=== PATIENT | female | born 1990 | race Caucasian/White ===

== ENCOUNTER 2016-07-21 21:48 | Emergency (ER) | payer OTHER ==
--- NOTE | 2016-07-21 23:07 | DIAGNOSTIC IMAGING REPORT ---
PROCEDURE: CT ABDOMEN/PELVIS W/O CONTRAST INDICATION: Right flank pain TECHNIQUE: Noncontrast axial images were obtained of the entire abdomen and pelvis with sagittal and coronal reformations. COMPARISON: None. FINDINGS: ABDOMEN: 1.4 mm right UVJ calculus with moderate right hydroureteronephrosis. There are no additional urinary calculi. Lung base are clear. Heart size is normal. Liver, gallbladder, pancreas, spleen, adrenal glands and abdominal aorta are normal. PELVIS: Normal appendix. IUD in place. No pelvic mass, free fluid or inflammatory changes. Bones are unremarkable. IMPRESSION: 1. 1.4 mm right UVJ calculus with moderate right hydroureteronephrosis. 2. IUD in place 3. Results discussed with Dr. Schmidt All CT scans at this facility use dose modulation, iterative reconstruction, and/or weight-based dosing when appropriate to reduce radiation dose to as low as reasonably achievable.
--- NOTE | 2016-07-21 23:10 | ED NURSING NOTES ---
Clinical Report - Nurses [facility] [address] [place] [address] 07/21/2016 21:49 Patient: VIGNESH KING TRIAGE Triage time 21:55. Acuity: LEVEL 3. Chief Complaint: RIGHT-SIDED FLANK PAIN and DIFFICULTY VOIDING (Vomiting). 22:10. Alert. SEPSIS SCREEN: Sepsis Screen. Negative (no infection suspected/documented). --22:10 Zi Batres R.N. 21:54 07/21/16. BP: 140/89. HR: 70. RR: 18. O2 saturation: 100% on room air. Temp: 98.3 F (oral). Pain level now: 12/07. --22:10 Zi Batres R.N. Weight: 86.1 kg stated. Height/Length: 68 inches Per Patient. BMI: 28.9. --22:00 Zi Batres R.N. Medications None. --22:00 Zi Batres R.N. History Arrived by private vehicle. Historian: patient. Accompanied by family. Primary physician (None). This started today. Treatment SIEBEL ADMINISTRATOR: None. PAST MEDICAL HX: Immunizations: up-to-date. Last normal menstrual period- 3 days ago. SOCIAL HX: Never smoker. Occasional alcohol use. No drug use. No infectious disease exposure. ABUSE ASSESSMENT: No report of abuse. FALL RISK ASSESSMENT: Fall risk assessment completed. No fall risk identified. NUTRITIONAL RISK ASSESSMENT: The nutritional risk assessment revealed no deficiencies. FUNCTIONAL ASSESSMENT: Functional assessment: no impairments noted. LEARNING NEEDS ASSESSMENT: The learning needs assessment revealed no barriers. SKIN INTEGRITY ASSESSMENT: Skin integrity risk assessment completed. No skin integrity risk identified. --22:10 Zi Batres R.N. PROBLEMS: Corneal Abrasion. --22:01 Zi Batres R.N. ADDITIONAL SURGERIES: . --22:01 Zi Batres R.N. Interventions ID band on patient. To treatment room. --22:10 Zi Batres R.N. PHYSICAL ASSESSMENT 21:56. Ambulatory to room. Patient gowned. GENERAL / NEURO / PSYCH: Alert. Oriented X 4. Appears in pain. HEENT: Mucous membranes are pink. RESPIRATORY: Respirations not labored. SKIN: Skin is warm and dry. --22:11 Zi Batres R.N. NURSING PROGRESS NOTES 21:58. Patient ID band checked for patient name and birthdate: patient confirmed. Clean catch urine collected with return of yellow-colored clear urine; sample sent to lab for urinalysis and HCG. Specimen labeled in the presence of the patient. --22:11 Zi Batres R.N. 22:10. Head of bed elevated. Two patient identifiers checked. Call light placed in reach. Bed placed in lowest position. Brakes of bed on. Patient ready for evaluation- chart flagged. --22:10 Zi Batres R.N. 21:59 07/21/2016 Site #1 started via IV in the right antecubital space with an 20g angiocath, with aseptic technique and good blood return; one attempt. Blood drawn: rainbow set. Labeled in the presence of the patient and sent to the lab. Saline lock flushed with 10 mL saline. --22:14 Zi Batres R.N. 22:03 07/21/2016 Started bag #1 1000 mL IV Fluids IV NS (Saline); at 1000 mL/hr over 1 hour(s) via site #1 --22:14 Zi Batres R.N. 22:05 07/21/2016 Zofran (Ondansetron HCl) IVP 4 mg given over 2 minute(s) via site #1. Allergies verified and confirmed 5 rights. IV patency established. IV site checked: no pain, redness, or swelling. IV flushed thoroughly pre- and post-medication administration. --22:14 Zi Batres R.N. 22:00 Patient vomited - new emesis bag, tissues and wet washrag provided. --22:15 Zi Batres R.N. 22:24. Pulse oximeter placed on patient; monitor alarms on. --22:24 Zi Batres R.N. 22:20 07/21/2016 Dilaudid (HYDROmorphone HCl PF) IVP 0.5 mg given over 2 minute(s) via site #1. Allergies verified, confirmed 5 rights and sedative warning given to the patient. IV patency established. IV site checked: no pain, redness, or swelling. IV flushed thoroughly pre- and post-medication administration. --22:24 Zi Batres R.N. 22:27 07/21/2016 Toradol IVP 30 mg given over 2 minute(s) via site #1. Allergies verified and confirmed 5 rights. IV patency established. IV site checked: no pain, redness, or swelling. IV flushed thoroughly pre- and post-medication administration. --22:29 Zi Batres R.N. 22:50. Patient transported to OR by stretcher with tech. --22:50 Zi Batres R.N. 23:00. Patient returned from OR by stretcher with tech. --23:03 Zi Batres R.N. 23:25. The patient is calm and resting quietly. Overall patient status is improved- she states feels better. SKIN: Skin is warm and dry. Skin color within normal limits. --23:36 Zi Batres R.N. DISPOSITION / DISCHARGE 23:15 07/21/2016 Flomax (Tamsulosin HCl) PO 0.4 mg given. Allergies verified and confirmed 5 rights. --23:17 Zi Batres R.N. 23:18 07/21/2016 Site #1 removed upon discharge. Catheter intact. Bandage applied. --23:18 Zi Batres R.N. 23:18 07/21/2016 IV Fluids IV NS Discontinued: bag #1 STOPPED upon discharge. Total amount infused: 825 mL. IV patency established. IV site checked: no pain, redness, or swelling. IV flushed thoroughly. --23:18 Zi Batres R.N. Departure time: 23:26. Condition at departure: stable. No learning barriers present. Discharge instructions provided and reviewed with the patient. Reviewed medication(s) side effects, precautions, dosing and course information. Prescription(s) given to the patient. Patient verbalized understanding. Written instructions provided in Polish. The patient was discharged home and accompanied by family. She left the Emergency Department ambulatory and via private vehicle. Family member driving. FALL RISK ASSESSMENT: Fall risk assessment completed. No fall risk identified. --23:27 Zi Batres R.N. 23:16 07/21/16. BP: 126/86. HR: 66. RR: 15. O2 saturation: 100%. Pain level now: 10/07. --23:27 Zi Batres R.N. 23:20. ( Urine strainer and instructions for use given to pt). --23:37 Zi Batres R.N. Locked/Released at 07/22/2016 0:19 by Zi Batres R.N.
--- NOTE | 2016-07-21 23:10 | ED NURSING NOTES ---
Clinical Report - Nurses [facility] [address] [place] [address] 07/21/2016 21:49 Patient: VIGNESH KING TRIAGE Triage time 21:55. Acuity: LEVEL 3. Chief Complaint: RIGHT-SIDED FLANK PAIN and DIFFICULTY VOIDING (Vomiting). 22:10. Alert. SEPSIS SCREEN: Sepsis Screen. Negative (no infection suspected/documented). --22:10 Zi Batres R.N. 21:54 07/21/16. BP: 140/89. HR: 70. RR: 18. O2 saturation: 100% on room air. Temp: 98.3 F (oral). Pain level now: 12/07. --22:10 Zi Batres R.N. Weight: 86.1 kg stated. Height/Length: 68 inches Per Patient. BMI: 28.9. --22:00 Zi Batres R.N. Medications None. --22:00 Zi Batres R.N. History Arrived by private vehicle. Historian: patient. Accompanied by family. Primary physician (None). This started today. Treatment PROGRAM PLANNER: None. PAST MEDICAL HX: Immunizations: up-to-date. Last normal menstrual period- 3 days ago. SOCIAL HX: Never smoker. Occasional alcohol use. No drug use. No infectious disease exposure. ABUSE ASSESSMENT: No report of abuse. FALL RISK ASSESSMENT: Fall risk assessment completed. No fall risk identified. NUTRITIONAL RISK ASSESSMENT: The nutritional risk assessment revealed no deficiencies. FUNCTIONAL ASSESSMENT: Functional assessment: no impairments noted. LEARNING NEEDS ASSESSMENT: The learning needs assessment revealed no barriers. SKIN INTEGRITY ASSESSMENT: Skin integrity risk assessment completed. No skin integrity risk identified. --22:10 Zi Batres R.N. PROBLEMS: Corneal Abrasion. --22:01 Zi Batres R.N. ADDITIONAL SURGERIES: . --22:01 Zi Batres R.N. Interventions ID band on patient. To treatment room. --22:10 Zi Batres R.N. PHYSICAL ASSESSMENT 21:56. Ambulatory to room. Patient gowned. GENERAL / NEURO / PSYCH: Alert. Oriented X 4. Appears in pain. HEENT: Mucous membranes are pink. RESPIRATORY: Respirations not labored. SKIN: Skin is warm and dry. --22:11 Zi Batres R.N. NURSING PROGRESS NOTES 21:58. Patient ID band checked for patient name and birthdate: patient confirmed. Clean catch urine collected with return of yellow-colored clear urine; sample sent to lab for urinalysis and HCG. Specimen labeled in the presence of the patient. --22:11 Zi Batres R.N. 22:10. Head of bed elevated. Two patient identifiers checked. Call light placed in reach. Bed placed in lowest position. Brakes of bed on. Patient ready for evaluation- chart flagged. --22:10 Zi Batres R.N. 21:59 07/21/2016 Site #1 started via IV in the right antecubital space with an 20g angiocath, with aseptic technique and good blood return; one attempt. Blood drawn: rainbow set. Labeled in the presence of the patient and sent to the lab. Saline lock flushed with 10 mL saline. --22:14 Zi Batres R.N. 22:03 07/21/2016 Started bag #1 1000 mL IV Fluids IV NS (Saline); at 1000 mL/hr over 1 hour(s) via site #1 --22:14 Zi Batres R.N. 22:05 07/21/2016 Zofran (Ondansetron HCl) IVP 4 mg given over 2 minute(s) via site #1. Allergies verified and confirmed 5 rights. IV patency established. IV site checked: no pain, redness, or swelling. IV flushed thoroughly pre- and post-medication administration. --22:14 Zi Batres R.N. 22:00 Patient vomited - new emesis bag, tissues and wet washrag provided. --22:15 Zi Batres R.N. 22:24. Pulse oximeter placed on patient; monitor alarms on. --22:24 Zi Batres R.N. 22:20 07/21/2016 Dilaudid (HYDROmorphone HCl PF) IVP 0.5 mg given over 2 minute(s) via site #1. Allergies verified, confirmed 5 rights and sedative warning given to the patient. IV patency established. IV site checked: no pain, redness, or swelling. IV flushed thoroughly pre- and post-medication administration. --22:24 Zi Batres R.N. 22:27 07/21/2016 Toradol IVP 30 mg given over 2 minute(s) via site #1. Allergies verified and confirmed 5 rights. IV patency established. IV site checked: no pain, redness, or swelling. IV flushed thoroughly pre- and post-medication administration. --22:29 Zi Batres R.N. 22:50. Patient transported to MD by stretcher with tech. --22:50 Zi Batres R.N. 23:00. Patient returned from MD by stretcher with tech. --23:03 Zi Batres R.N. 23:25. The patient is calm and resting quietly. Overall patient status is improved- she states feels better. SKIN: Skin is warm and dry. Skin color within normal limits. --23:36 Zi Batres R.N. DISPOSITION / DISCHARGE 23:15 07/21/2016 Flomax (Tamsulosin HCl) PO 0.4 mg given. Allergies verified and confirmed 5 rights. --23:17 Zi Batres R.N. 23:18 07/21/2016 Site #1 removed upon discharge. Catheter intact. Bandage applied. --23:18 Zi Batres R.N. 23:18 07/21/2016 IV Fluids IV NS Discontinued: bag #1 STOPPED upon discharge. Total amount infused: 825 mL. IV patency established. IV site checked: no pain, redness, or swelling. IV flushed thoroughly. --23:18 Zi Batres R.N. Departure time: 23:26. Condition at departure: stable. No learning barriers present. Discharge instructions provided and reviewed with the patient. Reviewed medication(s) side effects, precautions, dosing and course information. Prescription(s) given to the patient. Patient verbalized understanding. Written instructions provided in Greek. The patient was discharged home and accompanied by family. She left the Emergency Department ambulatory and via private vehicle. Family member driving. FALL RISK ASSESSMENT: Fall risk assessment completed. No fall risk identified. --23:27 Zi Batres R.N. 23:16 07/21/16. BP: 126/86. HR: 66. RR: 15. O2 saturation: 100%. Pain level now: 10/07. --23:27 Zi Batres R.N. 23:20. ( Urine strainer and instructions for use given to pt). --23:37 Zi Batres R.N. Locked/Released at 07/22/2016 0:19 by Zi Batres R.N.
--- NOTE | 2016-07-21 23:10 | ED ORDER SUMMARY ---
..... Patient: VIGNESH KING OrderSheet [facility] VisitID: [id number] [address] [place] [address] 26y, F Registration Date/Time: 07/21/2016 ORDER SHEET Weight: 86.1 kg (stated) Allergies: Penicillin, Latex GENERAL ORDERS: UA-Culture if indicated Urgent (21:58 07/21/2016 Gisselle SOLIS) (Ack 22:00 Valeria) (22:14 JQuivey R.N.) Urine Urgent (21:58 07/21/2016 Gisselle SOLIS) (Ack 22:00 Valeria) (22:14 JQuivey R.N.) Bladder Scan (21:58 07/21/2016 Gisselle SOLIS) (Cancelled: Other22:25 JQuivey R.N.) CBC w Diff Urgent (22:13 07/21/2016 JQuivey R.N. per protocol) (Ack 22:14 Valeria) (22:23 JQuivey R.N.) CMP Urgent (22:13 07/21/2016 JQuivey R.N. per protocol) (Ack 22:14 Valeria) (22:23 JQuivey R.N.) Amylase Urgent (22:19 07/21/2016 Gisselle SOLIS) (Ack 22:23 Valeria) (22:25 JQuivey R.N.) Lipase Urgent (22:19 07/21/2016 Gisselle SOLIS) (Ack 22:23 Valeria) (22:25 JQuivey R.N.) CT Abd/Pel wo Cont Urgent (22:41 07/21/2016 Gisselle SOLIS) (Ack 22:43 Valeria) (23:01 [facility]) MEDICATION ORDERS: Flomax PO 0.4 mg (NOW) (23:08 07/21/2016 Gisselle SOLIS) (Ack 23:11 JQuivey R.N.) (23:17 JQuivey R.N.) IV FLUIDS: IV NS : initial bolus none -, then 1000 mL/hr (NOW) (22:12 07/21/2016 JQuivey R.N. per protocol) (22:14 JQuivey R.N.) Zofran IV 4 mg (NOW) (22:13 07/21/2016 JQuivey R.N. per protocol) (22:14 JQuivey R.N.) Dilaudid IV 0.5 mg (HIGH ALERT MEDICATION, NOW) (22:19 07/21/2016 Gisselle SOLIS) (22:24 JQuivey R.N.) Toradol IV 30 mg (NOW) (22:28 07/21/2016 JQuivey R.N. verbal order read back to Gisselle SOLIS) (22:29 JQuivey R.N.) ORDER SHEET NOTES: [Electronically signed by Zi Batres R.N. (00:19 07/22/2016)] [Electronically signed by Wily Schmidt MD (00:33 07/22/2016)] [Electronically locked/signed by Zi Batres R.N. (00:19 07/22/2016)]
--- NOTE | 2016-07-21 23:10 | ED ORDER SUMMARY ---
..... Patient: VIGNESH KING OrderSheet [facility] VisitID: [id number] [address] [place] [address] 26y, F Registration Date/Time: 07/21/2016 ORDER SHEET Weight: 86.1 kg (stated) Allergies: Penicillin, Latex GENERAL ORDERS: UA-Culture if indicated Urgent (21:58 07/21/2016 Gisselle SOLIS) (Ack 22:00 Valeria) (22:14 JQuivey R.N.) Urine Urgent (21:58 07/21/2016 Gisselle SOLIS) (Ack 22:00 Valeria) (22:14 JQuivey R.N.) Bladder Scan (21:58 07/21/2016 Gisselle SOLIS) (Cancelled: Other22:25 JQuivey R.N.) CBC w Diff Urgent (22:13 07/21/2016 JQuivey R.N. per protocol) (Ack 22:14 Valeria) (22:23 JQuivey R.N.) CMP Urgent (22:13 07/21/2016 JQuivey R.N. per protocol) (Ack 22:14 Valeria) (22:23 JQuivey R.N.) Amylase Urgent (22:19 07/21/2016 Gisselle SOLIS) (Ack 22:23 Valeria) (22:25 JQuivey R.N.) Lipase Urgent (22:19 07/21/2016 Gisselle SOLIS) (Ack 22:23 Valeria) (22:25 JQuivey R.N.) CT Abd/Pel wo Cont Urgent (22:41 07/21/2016 Gisselle SOLIS) (Ack 22:43 Valeria) (23:01 [facility]) MEDICATION ORDERS: Flomax PO 0.4 mg (NOW) (23:08 07/21/2016 Gisselle SOLIS) (Ack 23:11 JQuivey R.N.) (23:17 JQuivey R.N.) IV FLUIDS: IV NS : initial bolus none -, then 1000 mL/hr (NOW) (22:12 07/21/2016 JQuivey R.N. per protocol) (22:14 JQuivey R.N.) Zofran IV 4 mg (NOW) (22:13 07/21/2016 JQuivey R.N. per protocol) (22:14 JQuivey R.N.) Dilaudid IV 0.5 mg (HIGH ALERT MEDICATION, NOW) (22:19 07/21/2016 Gisselle SOLIS) (22:24 JQuivey R.N.) Toradol IV 30 mg (NOW) (22:28 07/21/2016 JQuivey R.N. verbal order read back to Gisselle SOLIS) (22:29 JQuivey R.N.) ORDER SHEET NOTES: [Electronically signed by Zi Batres R.N. (00:19 07/22/2016)] [Electronically signed by Wily Schmidt MD (00:33 07/22/2016)] [Electronically locked/signed by Zi Batres R.N. (00:19 07/22/2016)]
--- NOTE | 2016-07-21 23:10 | ED CLINICAL REPORT ---
Clinical Report - Physicians/Mid Levels [facility] [address] [place] [address] 07/21/2016 21:49 Patient: VIGNESH KING Time Seen: 21:59. Arrived- By private vehicle. Historian- patient. HISTORY OF PRESENT ILLNESS Chief Complaint: RIGHT FLANK PAIN. This started today about 1 hours ago and still present. It has been constant and waxing/waning. The symptoms are described as severe. The patient has had severe, constant, sharp, crampy right-sided flank pain. She has had mild burning pain with urination. It has occurred during and after urination and has been associated with frequency. No urinary frequency. She has had urgency of urination. Last normal menstrual period- 3 days ago. Uses an IUD as a means of control (Paragard). REVIEW OF SYSTEMS No chills, fever, calf pain, chest pain or cough. No difficulty breathing, pedal edema, palpitations, black stools or bloody stools. No constipation, diarrhea, nausea, vomiting or urinary problems. The patient has experienced sweats. All systems otherwise negative, except as recorded above. PAST HISTORY ( PCP - None). Problems: Corneal Abrasion. Additional Surgeries: . Medications: None. Allergies: Latex. Penicillin. SOCIAL HISTORY Never smoker. Occasional alcohol use. No drug use. No recent travel. Is a local resident. FAMILY HISTORY Hypertension in first-degree relative (mother and sibling). ADDITIONAL NOTES The nursing notes have been reviewed. PHYSICAL EXAM Vital Signs: 07/21/2016 21:55 BP: 140/89. HR: 70. RR: 18. O2 saturation: 100%. Temp: 98.3 F. Pain level now: 7/10. Have been reviewed. Appearance: Alert. ENT: Pharynx normal. Neck: Neck supple. CVS: Heart sounds normal. Respiratory: No respiratory distress. Breath sounds normal. Abdomen: Soft. Mild tenderness in the suprapubic area. Bowel sounds normal. No organomegaly. No mass. Back: Normal external inspection. No CVA tenderness. Skin: Skin warm and dry. Normal skin color. Normal skin turgor. Extremities: Extremities nontender. No calf tenderness. No lower extremity edema. LABS, X-RAYS, AND EKG Abdominal CT: IMPRESSION: 1. 1.4 mm right UVJ calculus with moderate right hydroureteronephrosis. 2. IUD [address]. The study was interpreted contemporaneously by me and discussed with the radiologist. Laboratory Tests: UA-Culture if indicated: (FELIPA: 07/21/2016 22:00) ( [facility] [place] 22:16) Final results Test Result Flag Units (Reference) URINE COLOR YELLOW URINE APPEARANCE CLEAR URINE GLUCOSE NEGATIVE (NEGATIVE) URINE BILIRUBIN NEGATIVE (NEGATIVE) URINE KETONE NEGATIVE (NEGATIVE) URINE SPECIFIC GRAVITY 1.020 (1.010-1.030) URINE PH 6.0 (5.0-8.0) URINE PROTEIN NEGATIVE (NEGATIVE) URINE UROBILINOGEN 0.2 EU/dL (0.2-1.0) URINE NITRITE NEGATIVE (NEGATIVE) URINE BLOOD TRACE-INTACT (NEGATIVE) URINE LEUK ESTERASE TRACE (NEGATIVE) URINE RBC 5-10 rbc/hpf (0-1) URINE WBC 1-3 wbc/hpf (0-1) URINE EPITHELIAL CELLS 3-5 EPI/hpf (0-5) URINE BACTERIA TRACE (<1+) (NONE SEEN) URINE COMMENT CULTURE INDICATED URINE CULTURES ARE SET-UP BASED ON THE FOLLOWING CRITERIA:POSITIVE NITRITEPOSITIVE LEUKOCYTE ESTERASEGREATER THAN 10 WHITE BLOOD CELLSMODERATE (2+) OR GREATER BACTERIA Urine: (FELIPA: 07/21/2016 22:00) ( [facility] 07/21/2016 22:06) Final results Test Result Flag Units (Reference) URINE NEGATIVE CBC w Diff: (FELIPA: 07/21/2016 21:58) ( [facility] [place] 22:28) Final results Test Result Flag Units (Reference) WHITE BLOOD COUNT 8.6 K/uL (4.5-11.5) RED BLOOD COUNT 4.86 M/uL (4.00-5.20) HEMOGLOBIN 13.6 gm/dL (12.0-16.0) HEMATOCRIT 40.6 % (36.0-46.0) MEAN CELL VOLUME 84 fL (80-100) MEAN CORPUSCULAR HGB 28 pg (26-34) MEAN CORPUSCULAR HGB CONC 33 g/dL (31-37) RED CELL DISTRIBUTION WIDTH 13.4 % (11.6-14.8) PLATELET COUNT 337 K/uL (150-400) NEUTROPHIL % 38.5 L % (50-75) LYMPH % 49.8 H % (25-40) MONO % 9.4 % (3-14) EOSINOPHIL % 1.3 % (0-4) BASOPHIL % 1.0 % (0-2) Lipase: (FELIPA: 07/21/2016 21:58) ( Msg[facility]cv[facility] 07/21/2016 22:52) Final results Test Result Flag Units (Reference) LIPASE 228 U/L (73-393) AMYLASE 42 U/L (25-115) CMP: (FELIPA: 07/21/2016 22:13) ( MsgRcvd 07/21/2016 22:44) Final results Test Result Flag Units (Reference) GLUCOSE 96 mg/dL (70-110) BUN 14 mg/dL (7-18) CREATININE 0.9 mg/dL (0.6-1.3) Estimated GFR >60 mL/min Estimated GFR- >60 mL/min Note: Persistent reduction over 3 months in eGFR<60 mL/min/1.73 m2 defines CKD. Patients with eGFR values>=60 mL/min/1.73 m2 may also have CKD if evidence ofpersistent proteinuria. Additional information may be foundat www.kidney.org. SODIUM 142 mmol/L (136-145) POTASSIUM 3.5 mmol/L (3.5-5.1) CHLORIDE 104 mmol/L (98-107) CARBON DIOXIDE 28 mmol/L (21-32) CALCIUM 9.3 mg/dL (8.5-10.1) TOTAL PROTEIN 8.6 H g/dL (6.4-8.2) ALBUMIN 4.4 g/dL (3.3-5.0) BILIRUBIN, TOTAL 0.5 mg/dL (0.0-1.0) ALKALINE PHOSPHATASE 57 U/L (46-116) AST (SGOT) 23 U/L (15-37) ALT (SGPT) 53 U/L (12-78) . PROGRESS AND PROCEDURES Patient/family counseled. Old medical records reviewed. Disposition: Discharged. Condition: stable. CLINICAL IMPRESSION Right renal colic in the right ureter with hydronephrosis. Possible acute urinary tract infection. INSTRUCTIONS No driving or operating machinery while taking medication. Sedative medication was given during your visit. Do not work tomorrow or go to school tomorrow. Drink plenty of fluids. Warnings: Further evaluation is necessary. GENERAL WARNINGS: Return or contact your physician immediately if your condition worsens or changes unexpectedly, if not improving as expected, or if other problems arise. Prescription Medications: Hydrocodone/APAP 5mg/325mg: take 1 to 2 orally every 6 hours as needed for pain. Dispense fifteen (15). No refills. Cipro 500 mg: take 1 tab orally every 12 hours for 3 days. Dispense six (6). No refills. Substitution is permissible. Follow-up: Follow up with a urologist- as recommended by your primary care physician. Understanding of the discharge instructions verbalized by patient. Follow-up with: [facility], , , [address], , [place], [address] Follow up in five days. Call for an appointment. (Electronically signed by Wily Schmidt MD 07/22/2016 0:33)
--- NOTE | 2016-07-21 23:10 | ED CLINICAL REPORT ---
Clinical Report - Physicians/Mid Levels [facility] [address] [place] [address] 07/21/2016 21:49 Patient: VIGNESH KING Time Seen: 21:59. Arrived- By private vehicle. Historian- patient. HISTORY OF PRESENT ILLNESS Chief Complaint: RIGHT FLANK PAIN. This started today about 1 hours ago and still present. It has been constant and waxing/waning. The symptoms are described as severe. The patient has had severe, constant, sharp, crampy right-sided flank pain. She has had mild burning pain with urination. It has occurred during and after urination and has been associated with frequency. No urinary frequency. She has had urgency of urination. Last normal menstrual period- 3 days ago. Uses an IUD as a means of control (Paragard). REVIEW OF SYSTEMS No chills, fever, calf pain, chest pain or cough. No difficulty breathing, pedal edema, palpitations, black stools or bloody stools. No constipation, diarrhea, nausea, vomiting or urinary problems. The patient has experienced sweats. All systems otherwise negative, except as recorded above. PAST HISTORY ( PCP - None). Problems: Corneal Abrasion. Additional Surgeries: . Medications: None. Allergies: Latex. Penicillin. SOCIAL HISTORY Never smoker. Occasional alcohol use. No drug use. No recent travel. Is a local resident. FAMILY HISTORY Hypertension in first-degree relative (mother and sibling). ADDITIONAL NOTES The nursing notes have been reviewed. PHYSICAL EXAM Vital Signs: 07/21/2016 21:55 BP: 140/89. HR: 70. RR: 18. O2 saturation: 100%. Temp: 98.3 F. Pain level now: 7/10. Have been reviewed. Appearance: Alert. ENT: Pharynx normal. Neck: Neck supple. CVS: Heart sounds normal. Respiratory: No respiratory distress. Breath sounds normal. Abdomen: Soft. Mild tenderness in the suprapubic area. Bowel sounds normal. No organomegaly. No mass. Back: Normal external inspection. No CVA tenderness. Skin: Skin warm and dry. Normal skin color. Normal skin turgor. Extremities: Extremities nontender. No calf tenderness. No lower extremity edema. LABS, X-RAYS, AND EKG Abdominal CT: IMPRESSION: 1. 1.4 mm right UVJ calculus with moderate right hydroureteronephrosis. 2. IUD in [address]. The study was interpreted contemporaneously by me and discussed with the radiologist. Laboratory Tests: UA-Culture if indicated: (FELIPA: 07/21/2016 22:00) ( [facility] 07/21/2016 22:16) Final results Test Result Flag Units (Reference) URINE COLOR YELLOW URINE APPEARANCE CLEAR URINE GLUCOSE NEGATIVE (NEGATIVE) URINE BILIRUBIN NEGATIVE (NEGATIVE) URINE KETONE NEGATIVE (NEGATIVE) URINE SPECIFIC GRAVITY 1.020 (1.010-1.030) URINE PH 6.0 (5.0-8.0) URINE PROTEIN NEGATIVE (NEGATIVE) URINE UROBILINOGEN 0.2 EU/dL (0.2-1.0) URINE NITRITE NEGATIVE (NEGATIVE) URINE BLOOD TRACE-INTACT (NEGATIVE) URINE LEUK ESTERASE TRACE (NEGATIVE) URINE RBC 5-10 rbc/hpf (0-1) URINE WBC 1-3 wbc/hpf (0-1) URINE EPITHELIAL CELLS 3-5 EPI/hpf (0-5) URINE BACTERIA TRACE (<1+) (NONE SEEN) URINE COMMENT CULTURE INDICATED URINE CULTURES ARE SET-UP BASED ON THE FOLLOWING CRITERIA:POSITIVE NITRITEPOSITIVE LEUKOCYTE ESTERASEGREATER THAN 10 WHITE BLOOD CELLSMODERATE (2+) OR GREATER BACTERIA Urine: (FELIPA: 07/21/2016 22:00) ( [facility] 07/21/2016 22:06) Final results Test Result Flag Units (Reference) URINE NEGATIVE CBC w Diff: (FELIPA: 07/21/2016 21:58) [facility]28[facility] Final results Test Result Flag Units (Reference) WHITE BLOOD COUNT 8.6 K/uL (4.5-11.5) RED BLOOD COUNT 4.86 M/uL (4.00-5.20) HEMOGLOBIN 13.6 gm/dL (12.0-16.0) HEMATOCRIT 40.6 % (36.0-46.0) MEAN CELL VOLUME 84 fL (80-100) MEAN CORPUSCULAR HGB 28 pg (26-34) MEAN CORPUSCULAR HGB CONC 33 g/dL (31-37) RED CELL DISTRIBUTION WIDTH 13.4 % (11.6-14.8) PLATELET COUNT 337 K/uL (150-400) NEUTROPHIL % 38.5 L % (50-75) LYMPH % 49.8 H % (25-40) MONO % 9.4 % (3-14) EOSINOPHIL % 1.3 % (0-4) BASOPHIL % 1.0 % (0-2) Lipase: (FELIPA: 07/21/2016 21:58) ( [facility] 07/21/2016 22:52) Final results Test Result Flag Units (Reference) LIPASE 228 U/L (73-393) AMYLASE 42 U/L (25-115) CMP: (FELIPA: 07/21/2016 22:13) ( Msg[facility]cvd 07/21/2016 22:44) Final results Test Result Flag Units (Reference) GLUCOSE 96 mg/dL (70-110) BUN 14 mg/dL (7-18) CREATININE 0.9 mg/dL (0.6-1.3) Estimated GFR >60 mL/min Estimated GFR- >60 mL/min Note: Persistent reduction over 3 months in eGFR<60 mL/min/1.73 m2 defines CKD. Patients with eGFR values>=60 mL/min/1.73 m2 may also have CKD if evidence ofpersistent proteinuria. Additional information may be foundat www.[email or web address].org. SODIUM 142 mmol/L (136-145) POTASSIUM 3.5 mmol/L (3.5-5.1) CHLORIDE 104 mmol/L (98-107) CARBON DIOXIDE 28 mmol/L (21-32) CALCIUM 9.3 mg/dL (8.5-10.1) TOTAL PROTEIN 8.6 H g/dL (6.4-8.2) ALBUMIN 4.4 g/dL (3.3-5.0) BILIRUBIN, TOTAL 0.5 mg/dL (0.0-1.0) ALKALINE PHOSPHATASE 57 U/L (46-116) AST (SGOT) 23 U/L (15-37) ALT (SGPT) 53 U/L (12-78) . PROGRESS AND PROCEDURES Patient/family counseled. Old medical records reviewed. Disposition: Discharged. Condition: stable. CLINICAL IMPRESSION Right renal colic in the right ureter with hydronephrosis. Possible acute urinary tract infection. INSTRUCTIONS No driving or operating machinery while taking medication. Sedative medication was given during your visit. Do not work tomorrow or go to school tomorrow. Drink plenty of fluids. Warnings: Further evaluation is necessary. GENERAL WARNINGS: Return or contact your physician immediately if your condition worsens or changes unexpectedly, if not improving as expected, or if other problems arise. Prescription Medications: Hydrocodone/APAP 5mg/325mg: take 1 to 2 orally every 6 hours as needed for pain. Dispense fifteen (15). No refills. Cipro 500 mg: take 1 tab orally every 12 hours for 3 days. Dispense six (6). No refills. Substitution is permissible. Follow-up: Follow up with a urologist- as recommended by your primary care physician. Understanding of the discharge instructions verbalized by patient. Follow-up with: [facility], [place], , , [address], , [place], [address] Follow up in five days. Call for an appointment. (Electronically signed by Wily Schmidt MD 07/22/2016 0:33)
--- NOTE | 2016-07-22 00:34 | ED DISCHARGE INSTRUCTIONS ---
Patient: VIGNESH KING General Instructions [facility] VisitID: [id number] [address], [place] [address] 26y, F Registration Date/Time: 07/21/2016 Right renal colic in the right ureter with hydronephrosis. INSTRUCTIONS No driving or operating machinery while taking medication. Sedative medication was given during your visit. Do not work tomorrow or go to school tomorrow. Drink plenty of fluids. Warnings: Further evaluation is necessary. GENERAL WARNINGS: Return or contact your physician immediately if your condition worsens or changes unexpectedly, if not improving as expected, or if other problems arise. Prescription Medications: Hydrocodone/APAP 5mg/325mg: take 1 to 2 orally every 6 hours as needed for pain. Dispense fifteen (15). No refills. Cipro 500 mg: take 1 tab orally every 12 hours for 3 days. Dispense six (6). No refills. Substitution is permissible. Follow-up: Follow up with a urologist- as recommended by your primary care physician. Understanding of the discharge instructions verbalized by patient. Follow-up with: [facility], , , [address], , [place], [address] Follow up in five days. Call for an appointment. ADDITIONAL INFORMATION Bladder Infection,Female (Adult) A bladder infection ("cystitis" or "UTI") usually causes a constant urge to urinate and a burning when passing urine. Urine may be cloudy, smelly or dark. There may be pain in the lower abdomen. A bladder infection occurs when bacteria from the vaginal area enter the bladder opening (urethra). This can occur from sexual intercourse, wearing tight clothing, dehydration and other factors. Home Care: Drink lots of fluids (at least 6-8 glasses a day, unless you must restrict fluids for other medical reasons). This will force the medicine into your urinary system and flush the bacteria out of your body. Avoid sexual intercourse until your symptoms are gone. Avoid caffeine, alcohol and spicy foods. These can irritate the bladder. A bladder infection is treated with antibiotics. You may also be given Pyridium (generic = phenazopyridine) to reduce the burning sensation. This medicine will cause your urine to become a bright orange color. The orange urine may stain clothing. You may wear a pad or panty-liner to protect clothing. Preventing Future Infections: Always wipe from front to back after a bowel movement. Keep the genital area clean and dry. Drink plenty of fluids each day to avoid dehydration. Both sexual partners should wash before intercourse. Urinate right after intercourse to flush out the bladder. Wear cotton underwear and cotton-lined panty hose; avoid tight-fitting pants. If you are on control pills and are having frequent bladder infections, discuss with your doctor. Follow Up: Return to this facility or see your doctor if ALL symptoms are not gone after three days of treatment. Get Prompt Medical Attention if any of the following occur: Fever of 100.4F (38C) or higher, or as directed by your healthcare provider No improvement by the third day of treatment Increasing back or abdominal pain Repeated vomiting; unable to keep medicine down Weakness, dizziness or fainting Vaginal discharge Pain, redness or swelling in the labia (outer vaginal area) Kidney Stone (W/ Colic) The sharp cramping pain and nausea/vomiting that you have is due to a small stone which has formed in the kidney and is now passing down a narrow tube (ureter) on its way to your bladder. Once it reaches your bladder, the pain will stop. The stone may pass in your urine stream in one piece. [The size may be 1/16" to 1/4" (1-6mm)]. Or, the stone may also break up into yareli fragments which you may not even notice. Once you have had a kidney stone, you are at risk for developing another one in the future. Home Care: Drink plenty of fluids (at least 8 to 10 glasses of water a day). Most stones will pass on their own, but may take from a few hours to a few days. Sometimes the stone is too large to pass by itself and special methods will have to be used to remove the stone. Each time you urinate, do so in a jar. Pour the urine from the jar through the strainer and into the toilet. Continue doing this until 24 hours after your pain stops. By then, if there was a kidney stone, it should pass from your bladder. Some stones dissolve into sand-like particles and pass right through the strainer. In that case, you wont ever see a stone. Save any stone that you find in the strainer and bring it to your doctor for analysis. It may be possible to prevent certain types of stones from forming. Therefore, it is important to know what kind of stone you have. Try to stay as active as possible since this will help the stone pass. Do not stay in bed unless your pain prevents you from getting up. You may notice a red, pink or brown color to your urine. This is normal while passing a kidney stone. Follow Up with your doctor or return to this facility if the pain lasts more than 48 hours. Get Prompt Medical Attention if any of the following occur: Pain that is not controlled by the medicine given Repeated vomiting or unable to keep down fluids Weakness, dizziness or fainting Fever of 100.4F (38C) or higher, or as directed by your healthcare provider Passage of solid red or brown urine (can't see through it) or urine with lots of blood clots Unable to pass urine for 8 hours and increasing bladder pressure Hydrocodone Bitartrate, Acetaminophen Oral tablet What is this medicine? ACETAMINOPHEN; HYDROCODONE (a set a TRINIDAD gypsy fen; lisbeth droe KOE done) is a pain reliever. It is used to treat mild to moderate pain. How should I use this medicine? Take this medicine by mouth. Swallow it with a full glass of water. Follow the directions on the prescription label. If the medicine upsets your stomach, take the medicine with food or milk. Do not take more than you are told to take. Talk to your genetic counselor regarding the use of this medicine in children. This medicine is not approved for use in children. What side effects may I notice from receiving this medicine? Side effects that you should report to your doctor or health home care scheduler as soon as possible: allergic reactions like skin rash, itching or hives, swelling of the face, lips, or tongue breathing problems confusion feeling faint or lightheaded, falls stomach pain yellowing of the eyes or skin Side effects that usually do not require medical attention (report to your doctor or health home care scheduler if they continue or are bothersome): nausea, vomiting stomach upset What may interact with this medicine? alcohol antihistamines isoniazid medicines for depression, anxiety, or psychotic disturbances medicines for sleep muscle relaxants naltrexone narcotic medicines (opiates) for pain phenobarbital ritonavir tramadol What if I miss a dose? If you miss a dose, take it as soon as you can. If it is almost time for your next dose, take only that dose. Do not take double or extra doses. Where should I keep my medicine? Keep out of the reach of children. This medicine can be abused. Keep your medicine in a safe place to protect it from theft. Do not share this medicine with anyone. Selling or giving away this medicine is dangerous and against the law. Store at room temperature between 15 and 30 degrees C (59 and 86 degrees F). Protect from light. Keep container tightly closed. Throw away any unused medicine after the expiration date. Discard unused medicine and used packaging carefully. Pets and children can be harmed if they find used or lost packages. What should I tell my health care provider before I take this medicine? They need to know if you have any of these conditions: brain tumor Crohn's disease, inflammatory bowel disease, or ulcerative colitis drink more than 3 alcohol-containing drinks per day drug abuse or addiction head injury heart or circulation problems kidney disease or problems going to the bathroom liver disease lung disease, asthma, or breathing problems an unusual or allergic reaction to acetaminophen, hydrocodone, other opioid analgesics, other medicines, foods, dyes, or preservatives or trying to get breast-feeding What should I watch for while using this medicine? Tell your doctor or health home care scheduler if your pain does not go away, if it gets worse, or if you have new or a different type of pain. You may develop tolerance to the medicine. Tolerance means that you will need a higher dose of the medicine for pain relief. Tolerance is normal and is expected if you take the medicine for a long time. Do not suddenly stop taking your medicine because you may develop a severe reaction. Your body becomes used to the medicine. This does NOT mean you are addicted. Addiction is a behavior related to getting and using a drug for a non-medical reason. If you have pain, you have a medical reason to take pain medicine. Your doctor will tell you how much medicine to take. If your doctor wants you to stop the medicine, the dose will be slowly lowered over time to avoid any side effects. You may get drowsy or dizzy when you first start taking the medicine or change doses. Do not drive, use machinery, or do anything that may be dangerous until you know how the medicine affects you. Stand or sit up slowly. There are different types of narcotic medicines (opiates) for pain. If you take more than one type at the same time, you may have more side effects. Give your health care provider a list of all medicines you use. Your doctor will tell you how much medicine to take. Do not take more medicine than directed. Call emergency for help if you have problems breathing. The medicine will cause constipation. Try to have a bowel movement at least every 2 to 3 days. If you do not have a bowel movement for 3 days, call your doctor or health home care scheduler. Too much acetaminophen can be very dangerous. Do not take Tylenol (acetaminophen) or medicines that contain acetaminophen with this medicine. Many non-prescription medicines contain acetaminophen. Always read the labels carefully. Ciprofloxacin Hydrochloride Oral tablet What is this medicine? CIPROFLOXACIN (sip leda FLOX a sin) is a quinolone antibiotic. It is used to treat certain kinds of bacterial infections. It will not work for colds, flu, or other viral infections. How should I use this medicine? Take this medicine by mouth with a glass of water. Follow the directions on the prescription label. Take your medicine at regular intervals. Do not take your medicine more often than directed. Take all of your medicine as directed even if you think your are better. Do not skip doses or stop your medicine early. You can take this medicine with food or on an empty stomach. It can be taken with a meal that contains dairy or calcium, but do not take it alone with a dairy product, like milk or yogurt or calcium-fortified juice. A special MedGuide will be given to you by the pharmacist with each prescription and refill. Be sure to read this information carefully each time. Talk to your genetic counselor regarding the use of this medicine in children. Special care may be needed. What side effects may I notice from receiving this medicine? Side effects that you should report to your doctor or health home care scheduler as soon as possible: - allergic reactions like skin rash, itching or hives, swelling of the face, lips, or tongue - breathing problems - confusion, nightmares or hallucinations - feeling faint or lightheaded, falls - irregular heartbeat - joint, muscle or tendon pain or swelling - pain or trouble passing urine -persistent headache with or without blurred vision - redness, blistering, peeling or loosening of the skin, including inside the mouth - seizure - unusual pain, numbness, tingling, or weakness Side effects that usually do not require medical attention (report to your doctor or health home care scheduler if they continue or are bothersome): - diarrhea - nausea or stomach upset - white patches or sores in the mouth What may interact with this medicine? Do not take this medicine with any of the following medications: cisapride droperidol terfenadine tizanidine This medicine may also interact with the following medications: antacids caffeine cyclosporin didanosine (ddI) buffered tablets or powder medicines for diabetes medicines for inflammation like ibuprofen, naproxen methotrexate multivitamins omeprazole phenytoin probenecid sucralfate theophylline warfarin What if I miss a dose? If you miss a dose, take it as soon as you can. If it is almost time for your next dose, take only that dose. Do not take double or extra doses. Where should I keep my medicine? Keep out of the reach of children. Store at room temperature below 30 degrees C (86 degrees F). Keep container tightly closed. Throw away any unused medicine after the expiration date. What should I tell my health care provider before I take this medicine? They need to know if you have any of these conditions: -bone problems -cerebral disease -joint problems -irregular heartbeat -kidney disease -liver disease -myasthenia gravis -seizure disorder -tendon problems -an unusual or allergic reaction to ciprofloxacin, other antibiotics or medicines, foods, dyes, or preservatives - or trying to get -breast-feeding What should I watch for while using this medicine? Tell your doctor or health home care scheduler if your symptoms do not improve. Do not treat diarrhea with over the counter products. Contact your doctor if you have diarrhea that lasts more than 2 days or if it is severe and watery. You may get drowsy or dizzy. Do not drive, use machinery, or do anything that needs mental alertness until you know how this medicine affects you. Do not stand or sit up quickly, especially if you are an older patient. This reduces the risk of dizzy or fainting spells. This medicine can make you more sensitive to the sun. Keep out of the sun. If you cannot avoid being in the sun, wear protective clothing and use sunscreen. Do not use sun lamps or tanning beds/booths. Avoid antacids, aluminum, calcium, iron, magnesium, and zinc products for 6 hours before and 2 hours after taking a dose of this medicine. You have been given the following additional information: Bladder Infection, Female (Adult) Kidney Stone W/ Colic Hydrocodone Bitartrate, Acetaminophen Oral tablet Ciprofloxacin Hydrochloride Oral tablet No driving or operating machinery while taking medication. Sedative medication was given during your visit. Do not work tomorrow or go to school tomorrow. (Electronically signed by Wily Schmidt MD 07/22/2016 0:33)
--- NOTE | 2016-07-22 00:34 | ED MAR SUMMARY ---
..... Medication Administration Record [facility] [address] [place] [address] Patient: VIGNESH KING Visit ID: [id number] 26y, F Weight: 86.1 kg Height/Length: 68 in BMI: 28.9 ALLERGIES: Latex, Penicillin Start 22:03 07/21/2016 Zi Batres R.N., Stop 23:18 07/21/2016 Zi Batres R.N. Medication Administered: IV NS (SALINE), Dose: IV Fluids over 1 hour(s), Rate: 1000 mL/hr, Dispensed: 1000 mL bag, Site: #1 right AC. Medication Ordered: IV NS : initial bolus none -, then 1000 mL/hr (NOW). Given 22:05 07/21/2016 Zi Batres R.N. Medication Administered: ZOFRAN [IVP] (ONDANSETRON HCL), Dose: 4 mg IVP over 2 minute(s), Site: #1 right AC. Medication Ordered: Zofran IV 4 mg (NOW). Given 22:20 07/21/2016 Zi Batres R.N. Medication Administered: DILAUDID [IVP] (HYDROMORPHONE HCL PF), Dose: 0.5 mg IVP over 2 minute(s), Site: #1 right AC. Medication Ordered: Dilaudid IV 0.5 mg (HIGH ALERT MEDICATION, NOW). Given 22:27 07/21/2016 Zi Batres R.N. Medication Administered: TORADOL [IVP], Dose: 30 mg IVP over 2 minute(s), Site: #1 right AC. Medication Ordered: Toradol IV 30 mg (NOW). Given 23:15 07/21/2016 Zi Batres R.N. Medication Administered: FLOMAX [PO] (TAMSULOSIN HCL), Dose: 0.4 mg PO. Medication Ordered: Flomax PO 0.4 mg (NOW).
--- NOTE | 2016-07-22 00:34 | ED MAR SUMMARY ---
..... Medication Administration Record [facility] [address] [place] [address] Patient: VIGNESH KING Visit ID: [id number] 26y, F Weight: 86.1 kg Height/Length: 68 in BMI: 28.9 ALLERGIES: Latex, Penicillin Start 22:03 07/21/2016 Zi Batres R.N., Stop 23:18 07/21/2016 Zi Batres R.N. Medication Administered: IV NS (SALINE), Dose: IV Fluids over 1 hour(s), Rate: 1000 mL/hr, Dispensed: 1000 mL bag, Site: #1 right AC. Medication Ordered: IV NS : initial bolus none -, then 1000 mL/hr (NOW). Given 22:05 07/21/2016 Zi Batres R.N. Medication Administered: ZOFRAN [IVP] (ONDANSETRON HCL), Dose: 4 mg IVP over 2 minute(s), Site: #1 right AC. Medication Ordered: Zofran IV 4 mg (NOW). Given 22:20 07/21/2016 Zi Batres R.N. Medication Administered: DILAUDID [IVP] (HYDROMORPHONE HCL PF), Dose: 0.5 mg IVP over 2 minute(s), Site: #1 right AC. Medication Ordered: Dilaudid IV 0.5 mg (HIGH ALERT MEDICATION, NOW). Given 22:27 07/21/2016 Zi Batres R.N. Medication Administered: TORADOL [IVP], Dose: 30 mg IVP over 2 minute(s), Site: #1 right AC. Medication Ordered: Toradol IV 30 mg (NOW). Given 23:15 07/21/2016 Zi Batres R.N. Medication Administered: FLOMAX [PO] (TAMSULOSIN HCL), Dose: 0.4 mg PO. Medication Ordered: Flomax PO 0.4 mg (NOW).
--- NOTE | 2016-07-22 00:34 | ED MED RECONCILIATION SUMMARY ---
Patient: VIGNESH KING Medication Reconciliation Report [facility] VisitID: [id number] [address] [place] [address] 26y, F Registration Date/Time: 07/21/2016 Weight: 86.1 kg Height/Length: 68 in. BMI: 28.9 ALLERGIES: Latex, Penicillin The patient's Home Medications are listed below: NONE. The source(s) of the original Home Medication information: Not obtained. The following Medications were given to the patient in the Emergency Department: IV NS IV Fluids bolus 0, then 1000 mL/hr, administered: 07/21/2016 10:03:00 PM Zofran [IVP] IVP 4 mg, administered: 07/21/2016 10:05:00 PM Dilaudid [IVP] IVP 0.5 mg, administered: 07/21/2016 10:20:00 PM Toradol [IVP] IVP 30 mg, administered: 07/21/2016 10:27:00 PM Flomax [PO] PO 0.4 mg, administered: 07/21/2016 11:15:00 PM The following Medications were prescribed to the patient: Hydrocodone/APAP 5mg/325mg: take 1 to 2 orally every 6 hours as needed for pain. Dispense fifteen (15). No refills. -- Wily Schmidt MD Cipro 500 mg: take 1 tab orally every 12 hours for 3 days. Dispense six (6). No refills. Substitution is permissible. -- Wily Schmidt MD
--- NOTE | 2016-07-22 00:34 | ED MED RECONCILIATION SUMMARY ---
Patient: VIGNESH KING Medication Reconciliation Report [facility] VisitID: [id number] [address] [place] [address] 26y, F Registration Date/Time: 07/21/2016 Weight: 86.1 kg Height/Length: 68 in. BMI: 28.9 ALLERGIES: Latex, Penicillin The patient's Home Medications are listed below: NONE. The source(s) of the original Home Medication information: Not obtained. The following Medications were given to the patient in the Emergency Department: IV NS IV Fluids bolus 0, then 1000 mL/hr, administered: 07/21/2016 10:03:00 PM Zofran [IVP] IVP 4 mg, administered: 07/21/2016 10:05:00 PM Dilaudid [IVP] IVP 0.5 mg, administered: 07/21/2016 10:20:00 PM Toradol [IVP] IVP 30 mg, administered: 07/21/2016 10:27:00 PM Flomax [PO] PO 0.4 mg, administered: 07/21/2016 11:15:00 PM The following Medications were prescribed to the patient: Hydrocodone/APAP 5mg/325mg: take 1 to 2 orally every 6 hours as needed for pain. Dispense fifteen (15). No refills. -- Wily Schmidt MD Cipro 500 mg: take 1 tab orally every 12 hours for 3 days. Dispense six (6). No refills. Substitution is permissible. -- Wily Schmidt MD
== END 2016-07-21 23:26 | disposition home or self-care (01) ==
LOC: ED SRH 21:48
DX: N23 Unspecified renal colic (principal); N13.30 Unspecified hydronephrosis; Z88.0 Allergy status to penicillin; Z91.040 Latex allergy status
CPT/HCPCS: 90004; 90100; 90469; 92235; 92530; 93070; 95059

== ENCOUNTER 2016-07-24 10:10 | Emergency (ER) | payer OTHER ==
--- NOTE | 2016-07-24 11:49 | ED CLINICAL REPORT ---
Clinical Report - Physicians/Mid Levels [facility] [address] [place] [address] 07/24/2016 10:11 Patient: VIGNESH KING Time Seen: 11:11 Jul 24 2016. Arrived- By private vehicle. Historian- patient. CPT: ER phys charges level 4 (#[id number]). HISTORY OF PRESENT ILLNESS Chief Complaint: ALLERGIC REACTION. FACIAL SWELLING. Took cipro before bed last night and woke at 0200 with swelling of face, tongue, hands and feet. Better now in the ER. This started today about 2 AM and is now gone. The patient has had itching and swelling. No difficulty breathing. A possible cause has been identified (Cipro). She has recently taken medication. Similar symptoms previously: Worse. Diagnosis: allergic reaction (PCN, Latex). Recent medical care: The patient was seen recently at this facility. REVIEW OF SYSTEMS No eye problems, sore throat, cough, sputum production or fever. No chills, joint pain, enlarged lymph nodes, weakness or palpitations. No abdominal pain, vomiting, black stools, urinary frequency or pain with urination. All systems otherwise negative, except as recorded above. PAST HISTORY Prior allergic reaction. Medications: Cipro Oral. None. Allergies: Latex. Penicillin. SOCIAL HISTORY Never smoker. Occasional alcohol use. No drug use. ADDITIONAL NOTES The nursing notes have been reviewed. PHYSICAL EXAM Vital Signs: 07/24/2016 10:16 BP: 161/104. HR: 108. RR: 18. O2 saturation: 97%. Temp: 98.6 F. Appearance: Alert. No acute distress. Head and Neck: Normal external inspection. Eyes: Pupils equal, round and reactive to light. ENT: Ears normal. Nose normal. Pharynx normal. Voice normal. Neck: Neck supple. CVS: Normal heart rate and rhythm. Heart sounds normal. Respiratory: No respiratory distress. Breath sounds normal. No wheezes. Abdomen: Nontender. Skin: Skin warm. Extremities: Normal external inspection. Extremities nontender. Skin: Normal skin color. No rash. No urticaria. Neuro: Oriented X 3. No motor deficit. No sensory deficit. LABS, X-RAYS, AND EKG Laboratory Tests: UA-Culture if indicated: (FELIPA: 07/24/2016 11:23) ( MsgRcvd 07/24/2016 11:33) Final results Test Result Flag Units (Reference) URINE COLOR YELLOW URINE APPEARANCE CLEAR URINE GLUCOSE NEGATIVE (NEGATIVE) URINE BILIRUBIN NEGATIVE (NEGATIVE) URINE KETONE NEGATIVE (NEGATIVE) URINE SPECIFIC GRAVITY <= 1.005 L (1.010-1.030) URINE PH 7.0 (5.0-8.0) URINE PROTEIN NEGATIVE (NEGATIVE) URINE UROBILINOGEN 0.2 EU/dL (0.2-1.0) URINE NITRITE NEGATIVE (NEGATIVE) URINE BLOOD TRACE-INTACT (NEGATIVE) URINE LEUK ESTERASE NEGATIVE (NEGATIVE) URINE RBC 1-3 rbc/hpf (0-1) URINE WBC 0-1 wbc/hpf (0-1) URINE EPITHELIAL CELLS 1-3 EPI/hpf (0-5) URINE BACTERIA TRACE (<1+) (NONE SEEN) URINE COMMENT CULT NOT INDICATED URINE CULTURES ARE SET-UP BASED ON THE FOLLOWING CRITERIA:POSITIVE NITRITEPOSITIVE LEUKOCYTE ESTERASEGREATER THAN 10 WHITE BLOOD CELLSMODERATE (2+) OR GREATER BACTERIA . PROGRESS AND PROCEDURES Course of Care: No evidence of recurrent symptoms. Patient is stable. Patient/family counseled. Disposition: Discharged. Condition: stable. CLINICAL IMPRESSION Allergic reaction with skin rash and angioedema secondary to PO drug and cipro. No sign of urinary infection. INSTRUCTIONS Do not work today, for one day until better. Warnings: Further evaluation is necessary. GENERAL WARNINGS: Return or contact your physician immediately if your condition worsens or changes unexpectedly, if not improving as expected, or if other problems arise. Your Current Medications: STOP TAKING THE FOLLOWING MEDICATIONS: Cipro Oral. OTC Medications: Benadryl Allergy 25 mg (available over the counter): take 1-2 orally every 6 hours as needed for allergies. Dispense twenty (20). No refill. Substitution is permissible. Follow-up: Follow up with your doctor as needed. Understanding of the discharge instructions verbalized by patient. (Electronically signed by Rolly Mejia MD 07/24/2016 13:39)
--- NOTE | 2016-07-24 11:49 | ED CLINICAL REPORT ---
Clinical Report - Physicians/Mid Levels [facility] [address] [place] [address] 07/24/2016 10:11 Patient: VIGNESH KING Time Seen: 11:11 Jul 24 2016. Arrived- By private vehicle. Historian- patient. CPT: ER phys charges level 4 (#[id number]). HISTORY OF PRESENT ILLNESS Chief Complaint: ALLERGIC REACTION. FACIAL SWELLING. Took cipro before bed last night and woke at 0200 with swelling of face, tongue, hands and feet. Better now in the ER. This started today about 2 AM and is now gone. The patient has had itching and swelling. No difficulty breathing. A possible cause has been identified (Cipro). She has recently taken medication. Similar symptoms previously: Worse. Diagnosis: allergic reaction (PCN, Latex). Recent medical care: The patient was seen recently at this facility. REVIEW OF SYSTEMS No eye problems, sore throat, cough, sputum production or fever. No chills, joint pain, enlarged lymph nodes, weakness or palpitations. No abdominal pain, vomiting, black stools, urinary frequency or pain with urination. All systems otherwise negative, except as recorded above. PAST HISTORY Prior allergic reaction. Medications: Cipro Oral. None. Allergies: Latex. Penicillin. SOCIAL HISTORY Never smoker. Occasional alcohol use. No drug use. ADDITIONAL NOTES The nursing notes have been reviewed. PHYSICAL EXAM Vital Signs: 07/24/2016 10:16 BP: 161/104. HR: 108. RR: 18. O2 saturation: 97%. Temp: 98.6 F. Appearance: Alert. No acute distress. Head and Neck: Normal external inspection. Eyes: Pupils equal, round and reactive to light. ENT: Ears normal. Nose normal. Pharynx normal. Voice normal. Neck: Neck supple. CVS: Normal heart rate and rhythm. Heart sounds normal. Respiratory: No respiratory distress. Breath sounds normal. No wheezes. Abdomen: Nontender. Skin: Skin warm. Extremities: Normal external inspection. Extremities nontender. Skin: Normal skin color. No rash. No urticaria. Neuro: Oriented X 3. No motor deficit. No sensory deficit. LABS, X-RAYS, AND EKG Laboratory Tests: UA-Culture if indicated: (FELIPA: 07/24/2016 11:23) ( MsgRcvd 07/24/2016 11:33) Final results Test Result Flag Units (Reference) URINE COLOR YELLOW URINE APPEARANCE CLEAR URINE GLUCOSE NEGATIVE (NEGATIVE) URINE BILIRUBIN NEGATIVE (NEGATIVE) URINE KETONE NEGATIVE (NEGATIVE) URINE SPECIFIC GRAVITY <= 1.005 L (1.010-1.030) URINE PH 7.0 (5.0-8.0) URINE PROTEIN NEGATIVE (NEGATIVE) URINE UROBILINOGEN 0.2 EU/dL (0.2-1.0) URINE NITRITE NEGATIVE (NEGATIVE) URINE BLOOD TRACE-INTACT (NEGATIVE) URINE LEUK ESTERASE NEGATIVE (NEGATIVE) URINE RBC 1-3 rbc/hpf (0-1) URINE WBC 0-1 wbc/hpf (0-1) URINE EPITHELIAL CELLS 1-3 EPI/hpf (0-5) URINE BACTERIA TRACE (<1+) (NONE SEEN) URINE COMMENT CULT NOT INDICATED URINE CULTURES ARE SET-UP BASED ON THE FOLLOWING CRITERIA:POSITIVE NITRITEPOSITIVE LEUKOCYTE ESTERASEGREATER THAN 10 WHITE BLOOD CELLSMODERATE (2+) OR GREATER BACTERIA . PROGRESS AND PROCEDURES Course of Care: No evidence of recurrent symptoms. Patient is stable. Patient/family counseled. Disposition: Discharged. Condition: stable. CLINICAL IMPRESSION Allergic reaction with skin rash and angioedema secondary to PO drug and cipro. No sign of urinary infection. INSTRUCTIONS Do not work today, for one day until better. Warnings: Further evaluation is necessary. GENERAL WARNINGS: Return or contact your physician immediately if your condition worsens or changes unexpectedly, if not improving as expected, or if other problems arise. Your Current Medications: STOP TAKING THE FOLLOWING MEDICATIONS: Cipro Oral. OTC Medications: Benadryl Allergy 25 mg (available over the counter): take 1-2 orally every 6 hours as needed for allergies. Dispense twenty (20). No refill. Substitution is permissible. Follow-up: Follow up with your doctor as needed. Understanding of the discharge instructions verbalized by patient. (Electronically signed by Rolly Mejia MD 07/24/2016 13:39)
--- NOTE | 2016-07-24 11:49 | ED ORDER SUMMARY ---
..... Patient: VIGNESH KING OrderSheet [facility] VisitID: [id number] [address] [place] [address] 26y, F Registration Date/Time: 07/24/2016 ORDER SHEET Weight: 86.1 kg (stated) Allergies: Latex, Penicillin GENERAL ORDERS: UA-Culture if indicated Urgent (11:20 07/24/2016 Luis A SOLIS) ([facility] 11:25 [facility]) MEDICATION ORDERS: IV FLUIDS: ORDER SHEET NOTES: [Electronically signed by Rolly Mejia MD (13:39 07/24/2016)] [Electronically signed by Alek Contreras R.N. (19:16 07/24/2016)] [Electronically locked/signed by Alek Contreras R.N. (19:16 07/24/2016)]
--- NOTE | 2016-07-24 11:49 | ED NURSING NOTES ---
Clinical Report - Nurses [facility] [address] [place] [address] 07/24/2016 10:11 Patient: VIGNESH KING TRIAGE Triage time 10:17 Jul 24 2016. Acuity: LEVEL 3. Chief Complaint: POSSIBLE ALLERGIC REACTION and SWELLING --10:21 Alek Contreras R.N. 10:16 07/24/16. BP: 161/104. HR: 108. RR: 18. O2 saturation: 97%. Temp: 98.6 F. Pain level now 0/10. --10:21 Alek Contreras R.N. Weight: 86.1 kg stated. Height/Length: 69 inches Per Patient. BMI: 28.1. --10:21 Alek Contreras R.N. Medications None. --10:19 Alek Contreras R.N. Cipro Oral. --10:19 Alek Contreras R.N. Allergies Latex. --10:19 Alek Contreras R.N. Penicillin. --10:19 Alek Contreras R.N. History Arrived by private vehicle. Historian: patient. This started yesterday. ( Has been taking Cipro since Wednesday. Yesterday noticed feet and hands and tongue are heavy and swollen like "water balloons".). She has had swelling. No skin rash, itching, fainting episodes or weakness. Treatment TIMBER INSPECTOR: None. SOCIAL HX: Never smoker. Occasional alcohol use; consumes one wine occasionally. No drug use. No infectious disease exposure. SELF HARM ASSESSMENT: A self harm assessment was performed. The patient answered "no" to the question "Have you recently felt down, depressed, or hopeless?" and "Do you have thoughts of harming or killing yourself?". FALL RISK ASSESSMENT: Fall risk assessment completed. No fall risk identified. NUTRITIONAL RISK ASSESSMENT: The nutritional risk assessment revealed no deficiencies. FUNCTIONAL ASSESSMENT: Functional assessment: no impairments noted. LEARNING NEEDS ASSESSMENT: The learning needs assessment revealed no barriers. ABUSE ASSESSMENT: Abuse assessment: (yes) The patient was asked "Do you feel safe in your home?". SKIN INTEGRITY ASSESSMENT: Skin integrity risk assessment completed. No skin integrity risk identified. --10:21 Alek Contreras R.N. PROBLEMS: Corneal Abrasion. Immunizations. LNMP - Last Normal Menstrual Period. --10:19 Alek Contreras R.N. Renal Colic [RuleOut]. UTI - Urinary Tract Infection [RuleOut]. --10:19 Alek Contreras R.N. ADDITIONAL SURGERIES: . --10:20 Alek Contreras R.N. Interventions ID band on patient. --10:21 Alek Contreras R.N. PHYSICAL ASSESSMENT Ambulatory to room. ( Brought kidney stone in. Has a family history of high BP and has had a few high BP's past few months.). GENERAL / NEURO / PSYCH: Alert. The patient does not appear to be in acute distress. Oriented X 4. HEENT: Pupils equal, round and reactive to light. Mucous membranes are pink. RESPIRATORY: Respirations not labored. Breath sounds within normal limits. CVS: Normal sinus rhythm noted. Capillary refill less than 2 seconds. Pulses within normal limits. GI / : Abdomen nontender. SKIN: Skin is intact, warm and dry. No skin rash. --10:23 Alek Contreras R.N. NURSING PROGRESS NOTES The plan of care for this patient has been created. Pulse oximeter and NIBP monitor placed on patient. Head of bed elevated (90). Reassurance given. Call light placed in reach. Side rails up x 1. Bed placed in lowest position. Brakes of bed on. --10:25 Alek Contreras R.N. 10:23 07/24/16. BP: 144/90. HR: 108. RR: 20. O2 saturation: 100%. --10:25 Alek Contreras R.N. 10:35 07/24/16. BP: 139/79. HR: 90. RR: 18. O2 saturation: 98%. 10:23 07/24/16. BP: 144/90. HR: 108. RR: 20. O2 saturation: 100%. --12:03 Alek Contreras R.N. DISPOSITION / DISCHARGE Departure time: 12:02 Jul 24 2016. Condition at departure: improved. No learning barriers present. Discharge instructions provided and reviewed with the patient. Reviewed warnings. Reviewed medication(s). Treatments reviewed. Reviewed referrals. Work note given. Patient verbalized understanding. Written instructions provided in Japanese. The patient was discharged home. She left the Emergency Department ambulatory and via private vehicle. Patient driving. --12:02 Alek Contreras R.N. 11:40 07/24/16. BP: 119/88. HR: 95. RR: 18. O2 saturation: 99%. Temp: 98.4 F. Pain level now: 0/10. --12:02 Alek Contreras R.N. Locked/Released at 07/24/2016 19:16 by Alek Contreras R.N.
--- NOTE | 2016-07-24 11:49 | ED NURSING NOTES ---
Clinical Report - Nurses [facility] [address] [place] [address] 07/24/2016 10:11 Patient: VIGNESH KING TRIAGE Triage time 10:17 Jul 24 2016. Acuity: LEVEL 3. Chief Complaint: POSSIBLE ALLERGIC REACTION and SWELLING --10:21 Alek Contreras R.N. 10:16 07/24/16. BP: 161/104. HR: 108. RR: 18. O2 saturation: 97%. Temp: 98.6 F. Pain level now 0/10. --10:21 Alek Contreras R.N. Weight: 86.1 kg stated. Height/Length: 69 inches Per Patient. BMI: 28.1. --10:21 Alek Contreras R.N. Medications None. --10:19 Alek Contreras R.N. Cipro Oral. --10:19 Alek Contreras R.N. Allergies Latex. --10:19 Alek Contreras R.N. Penicillin. --10:19 Alek Contreras R.N. History Arrived by private vehicle. Historian: patient. This started yesterday. ( Has been taking Cipro since Wednesday. Yesterday noticed feet and hands and tongue are heavy and swollen like "water balloons".). She has had swelling. No skin rash, itching, fainting episodes or weakness. Treatment TEMPERATURE CONTROL INSPECTOR: None. SOCIAL HX: Never smoker. Occasional alcohol use; consumes one wine occasionally. No drug use. No infectious disease exposure. SELF HARM ASSESSMENT: A self harm assessment was performed. The patient answered "no" to the question "Have you recently felt down, depressed, or hopeless?" and "Do you have thoughts of harming or killing yourself?". FALL RISK ASSESSMENT: Fall risk assessment completed. No fall risk identified. NUTRITIONAL RISK ASSESSMENT: The nutritional risk assessment revealed no deficiencies. FUNCTIONAL ASSESSMENT: Functional assessment: no impairments noted. LEARNING NEEDS ASSESSMENT: The learning needs assessment revealed no barriers. ABUSE ASSESSMENT: Abuse assessment: (yes) The patient was asked "Do you feel safe in your home?". SKIN INTEGRITY ASSESSMENT: Skin integrity risk assessment completed. No skin integrity risk identified. --10:21 Alek Contreras R.N. PROBLEMS: Corneal Abrasion. Immunizations. LNMP - Last Normal Menstrual Period. --10:19 Alek Contreras R.N. Renal Colic [RuleOut]. UTI - Urinary Tract Infection [RuleOut]. --10:19 Alek Contreras R.N. ADDITIONAL SURGERIES: . --10:20 Alek Contreras R.N. Interventions ID band on patient. --10:21 Alek Contreras R.N. PHYSICAL ASSESSMENT Ambulatory to room. ( Brought kidney stone in. Has a family history of high BP and has had a few high BP's past few months.). GENERAL / NEURO / PSYCH: Alert. The patient does not appear to be in acute distress. Oriented X 4. HEENT: Pupils equal, round and reactive to light. Mucous membranes are pink. RESPIRATORY: Respirations not labored. Breath sounds within normal limits. CVS: Normal sinus rhythm noted. Capillary refill less than 2 seconds. Pulses within normal limits. GI / : Abdomen nontender. SKIN: Skin is intact, warm and dry. No skin rash. --10:23 Alek Contreras R.N. NURSING PROGRESS NOTES The plan of care for this patient has been created. Pulse oximeter and NIBP monitor placed on patient. Head of bed elevated (90). Reassurance given. Call light placed in reach. Side rails up x 1. Bed placed in lowest position. Brakes of bed on. --10:25 Alek Contreras R.N. 10:23 07/24/16. BP: 144/90. HR: 108. RR: 20. O2 saturation: 100%. --10:25 Alek Contreras R.N. 10:35 07/24/16. BP: 139/79. HR: 90. RR: 18. O2 saturation: 98%. 10:23 07/24/16. BP: 144/90. HR: 108. RR: 20. O2 saturation: 100%. --12:03 Alek Contreras R.N. DISPOSITION / DISCHARGE Departure time: 12:02 Jul 24 2016. Condition at departure: improved. No learning barriers present. Discharge instructions provided and reviewed with the patient. Reviewed warnings. Reviewed medication(s). Treatments reviewed. Reviewed referrals. Work note given. Patient verbalized understanding. Written instructions provided in Welsh. The patient was discharged home. She left the Emergency Department ambulatory and via private vehicle. Patient driving. --12:02 Alek Contreras R.N. 11:40 07/24/16. BP: 119/88. HR: 95. RR: 18. O2 saturation: 99%. Temp: 98.4 F. Pain level now: 0/10. --12:02 Alek Contreras R.N. Locked/Released at 07/24/2016 19:16 by Alek Contreras R.N.
--- NOTE | 2016-07-24 11:49 | ED ORDER SUMMARY ---
..... Patient: VIGNESH KING OrderSheet [facility] VisitID: [id number] [address] [place] [address] 26y, F Registration Date/Time: 07/24/2016 ORDER SHEET Weight: 86.1 kg (stated) Allergies: Latex, Penicillin GENERAL ORDERS: UA-Culture if indicated Urgent (11:20 07/24/2016 Luis A SOLIS) ([facility] 11:25 [facility]) MEDICATION ORDERS: IV FLUIDS: ORDER SHEET NOTES: [Electronically signed by Rolly Mejia MD (13:39 07/24/2016)] [Electronically signed by Alek Contreras R.N. (19:16 07/24/2016)] [Electronically locked/signed by Alek Contreras R.N. (19:16 07/24/2016)]
--- NOTE | 2016-07-24 19:16 | ED MED RECONCILIATION SUMMARY ---
Patient: VIGNESH KING Medication Reconciliation Report [facility] VisitID: [id number] [address] [place] [address] 26y, F Registration Date/Time: 07/24/2016 Weight: 86.1 kg Height/Length: 69 in. BMI: 28.1 ALLERGIES: Latex, Penicillin The patient's Home Medications are listed below: STOP TAKING THE FOLLOWING MEDICATIONS: Cipro Oral The source(s) of the original Home Medication information: Not obtained. The following Medications were given to the patient in the Emergency Department: None. The following Medications were prescribed to the patient: Benadryl Allergy 25 mg (available over the counter): take 1-2 orally every 6 hours as needed for allergies. Dispense twenty (20). No refill. Substitution is permissible. -- Rolly Mejia MD
--- NOTE | 2016-07-24 19:16 | ED DISCHARGE INSTRUCTIONS ---
Patient: VIGNESH KING General Instructions [facility] VisitID: [id number] [address] [place] [address] 26y, F Registration Date/Time: 07/24/2016 Allergic reaction with skin rash and angioedema secondary to PO drug and cipro. No sign of urinary infection. INSTRUCTIONS Do not work today, for one day until better. Warnings: Further evaluation is necessary. GENERAL WARNINGS: Return or contact your physician immediately if your condition worsens or changes unexpectedly, if not improving as expected, or if other problems arise. Your Current Medications: STOP TAKING THE FOLLOWING MEDICATIONS: Cipro Oral. OTC Medications: Benadryl Allergy 25 mg (available over the counter): take 1-2 orally every 6 hours as needed for allergies. Dispense twenty (20). No refill. Substitution is permissible. Follow-up: Follow up with your doctor as needed. Understanding of the discharge instructions verbalized by patient. ADDITIONAL INFORMATION Drug Reaction: Allergic You are having an allergic reaction to a drug you have taken. This causes an itchy rash and sometimes swelling of various parts of the body. It may also cause trouble swallowing or breathing. The rash may take a few hours or up to two weeks to go away. In the future, remember to tell your doctor about your allergy to this drug so that drugs of this type won't be used again. Home Care: 1) Throw the drug away and do not take it again. The next reaction may be much worse. 2) Avoid tight clothing and anything that heats up your skin (hot showers/baths, direct sunlight) since heat will make itching worse. 3) An ice pack (ice cubes in a plastic bag, wrapped in a towel) will relieve local areas of intense itching and redness. Lanacaine cream or Solarcaine spray (or other product containing "benzocaine") will reduce the itching. 4) Avoid scratching which may worsen the reaction, damage your skin and lead to an infection. 5) Oral Benadryl (diphenhydramine) is an antihistamine available at drug and grocery stores. Unless a prescription antihistamine was given, Benadryl may be used to reduce itching if large areas of the skin are involved. Use lower doses during the daytime and higher doses at bedtime since the drug may make you sleepy. [NOTE: Do not use Benadryl if you have glaucoma or if you are a man with trouble urinating due to an enlarged prostate.] Claritin (loratadine) is an antihistamine that causes less drowsiness and is a good alternative for daytime use. Follow Up with your doctor or this facility in the next two days if your symptoms do not continue to improve. Get Prompt Medical Attention if any of the following occur: -- Wheezing, shortness of breath or difficulty swallowing -- Increased swelling in the face, eyelids, mouth, lips, tongue or throat -- Dizziness, weakness or fainting Diphenhydramine Tannate Chewable tablet What is this medicine? DIPHENHYDRAMINE (dye fen NIKOLAI diallo) is an antihistamine. It is used to treat the symptoms of an allergic reaction. How should I use this medicine? Take this medicine by mouth. Chew it completely before swallowing. Follow the directions on the prescription label. Take your doses at regular intervals. Do not take your medicine more often than directed. Talk to your material requirements worker regarding the use of this medicine in children. While this drug may be prescribed for children as young as 6 years old for selected conditions, precautions do apply. Patients over 65 years old may have a stronger reaction and need a smaller dose. What side effects may I notice from receiving this medicine? Side effects that you should report to your doctor or health child care associate as soon as possible: allergic reactions like skin rash, itching or hives, swelling of the face, lips, or tongue changes in vision confused, agitated, nervous irregular or fast heartbeat tremor trouble passing urine unusual bleeding or bruising unusually weak or tired Side effects that usually do not require medical attention (report to your doctor or health child care associate if they continue or are bothersome): constipation, diarrhea drowsy headache loss of appetite stomach upset, vomiting thick mucous What may interact with this medicine? Do not take this medicine with any of the following medications: MAOIs like Carbex, Eldepryl, Marplan, Nardil, and Parnate This medicine may also interact with the following medications: alcohol barbiturates, like phenobarbital medicines for bladder spasm like oxybutynin, tolterodine medicines for blood pressure medicines for depression, anxiety, or psychotic disturbances medicines for movement abnormalities or Parkinson's disease medicines for sleep other medicines for cold, cough or allergy some medicines for the stomach like chlordiazepoxide, dicyclomine What if I miss a dose? If you miss a dose, take it as soon as you can. If it is almost time for your next dose, take only that dose. Do not take double or extra doses. Where should I keep my medicine? Keep out of the reach of children. Store at room temperature between 15 and 30 degrees C (59 and 86 degrees F). Keep container closed tightly. Throw away any unused medicine after the expiration date. What should I tell my health care provider before I take this medicine? They need to know if you have any of these conditions: glaucoma high blood pressure heart disease liver disease lung or breathing disease, like asthma pain or difficulty passing urine phenylketonuria prostate trouble ulcers or other stomach problems an unusual or allergic reaction to diphenhydramine, sulfites, other medicines foods, dyes, or preservatives or trying to get breast-feeding What should I watch for while using this medicine? Visit your doctor or health child care associate for regular check ups. Tell your doctor or healthcare professional if your symptoms do not start to get better or if they get worse. Your mouth may get dry. Chewing sugarless gum or sucking hard candy, and drinking plenty of water may help. Contact your doctor if the problem does not go away or is severe. This medicine may cause dry eyes and blurred vision. If you wear contact lenses you may feel some discomfort. Lubricating drops may help. See your eye doctor if the problem does not go away or is severe. You may get drowsy or dizzy. Do not drive, use machinery, or do anything that needs mental alertness until you know how this medicine affects you. Do not stand or sit up quickly, especially if you are an older patient. This reduces the risk of dizzy or fainting spells. Alcohol may interfere with the effect of this medicine. Avoid alcoholic drinks. You have been given the following additional information: Allergic Reaction, Drug Diphenhydramine Tannate Chewable tablet Do not work today, for one day until better. (Electronically signed by Rolly Mejia MD 07/24/2016 13:39)
--- NOTE | 2016-07-24 19:16 | ED MED RECONCILIATION SUMMARY ---
Patient: VIGNESH KING Medication Reconciliation Report [facility] VisitID: [id number] [address] [place] [address] 26y, F Registration Date/Time: 07/24/2016 Weight: 86.1 kg Height/Length: 69 in. BMI: 28.1 ALLERGIES: Latex, Penicillin The patient's Home Medications are listed below: STOP TAKING THE FOLLOWING MEDICATIONS: Cipro Oral The source(s) of the original Home Medication information: Not obtained. The following Medications were given to the patient in the Emergency Department: None. The following Medications were prescribed to the patient: Benadryl Allergy 25 mg (available over the counter): take 1-2 orally every 6 hours as needed for allergies. Dispense twenty (20). No refill. Substitution is permissible. -- Rolly Mejia MD
--- NOTE | 2016-07-24 19:16 | ED MAR SUMMARY ---
..... Medication Administration Record [facility] [address], [place] [id number] Patient: VIGNESH KING Visit ID: [id number] 26y, F Weight: 86.1 kg Height/Length: 69 in BMI: 28.1 ALLERGIES: Penicillin, Latex
--- NOTE | 2016-07-24 19:16 | ED MAR SUMMARY ---
..... Medication Administration Record [facility] [address] [place], [place] [id number] Patient: VIGNESH KING Visit ID: [id number] 26y, F Weight: 86.1 kg Height/Length: 69 in BMI: 28.1 ALLERGIES: Penicillin, Latex
--- NOTE | 2016-07-24 19:16 | ED DISCHARGE INSTRUCTIONS ---
Patient: VIGNESH KING General Instructions [facility] VisitID: [id number] [address] [place] [address] 26y, F Registration Date/Time: 07/24/2016 Allergic reaction with skin rash and angioedema secondary to PO drug and cipro. No sign of urinary infection. INSTRUCTIONS Do not work today, for one day until better. Warnings: Further evaluation is necessary. GENERAL WARNINGS: Return or contact your physician immediately if your condition worsens or changes unexpectedly, if not improving as expected, or if other problems arise. Your Current Medications: STOP TAKING THE FOLLOWING MEDICATIONS: Cipro Oral. OTC Medications: Benadryl Allergy 25 mg (available over the counter): take 1-2 orally every 6 hours as needed for allergies. Dispense twenty (20). No refill. Substitution is permissible. Follow-up: Follow up with your doctor as needed. Understanding of the discharge instructions verbalized by patient. ADDITIONAL INFORMATION Drug Reaction: Allergic You are having an allergic reaction to a drug you have taken. This causes an itchy rash and sometimes swelling of various parts of the body. It may also cause trouble swallowing or breathing. The rash may take a few hours or up to two weeks to go away. In the future, remember to tell your doctor about your allergy to this drug so that drugs of this type won't be used again. Home Care: 1) Throw the drug away and do not take it again. The next reaction may be much worse. 2) Avoid tight clothing and anything that heats up your skin (hot showers/baths, direct sunlight) since heat will make itching worse. 3) An ice pack (ice cubes in a plastic bag, wrapped in a towel) will relieve local areas of intense itching and redness. Lanacaine cream or Solarcaine spray (or other product containing "benzocaine") will reduce the itching. 4) Avoid scratching which may worsen the reaction, damage your skin and lead to an infection. 5) Oral Benadryl (diphenhydramine) is an antihistamine available at drug and grocery stores. Unless a prescription antihistamine was given, Benadryl may be used to reduce itching if large areas of the skin are involved. Use lower doses during the daytime and higher doses at bedtime since the drug may make you sleepy. [NOTE: Do not use Benadryl if you have glaucoma or if you are a man with trouble urinating due to an enlarged prostate.] Claritin (loratadine) is an antihistamine that causes less drowsiness and is a good alternative for daytime use. Follow Up with your doctor or this facility in the next two days if your symptoms do not continue to improve. Get Prompt Medical Attention if any of the following occur: -- Wheezing, shortness of breath or difficulty swallowing -- Increased swelling in the face, eyelids, mouth, lips, tongue or throat -- Dizziness, weakness or fainting Diphenhydramine Tannate Chewable tablet What is this medicine? DIPHENHYDRAMINE (dye fen NIKOLAI diallo) is an antihistamine. It is used to treat the symptoms of an allergic reaction. How should I use this medicine? Take this medicine by mouth. Chew it completely before swallowing. Follow the directions on the prescription label. Take your doses at regular intervals. Do not take your medicine more often than directed. Talk to your silvering applicator regarding the use of this medicine in children. While this drug may be prescribed for children as young as 6 years old for selected conditions, precautions do apply. Patients over 65 years old may have a stronger reaction and need a smaller dose. What side effects may I notice from receiving this medicine? Side effects that you should report to your doctor or health menagerie caretaker as soon as possible: allergic reactions like skin rash, itching or hives, swelling of the face, lips, or tongue changes in vision confused, agitated, nervous irregular or fast heartbeat tremor trouble passing urine unusual bleeding or bruising unusually weak or tired Side effects that usually do not require medical attention (report to your doctor or health menagerie caretaker if they continue or are bothersome): constipation, diarrhea drowsy headache loss of appetite stomach upset, vomiting thick mucous What may interact with this medicine? Do not take this medicine with any of the following medications: MAOIs like Carbex, Eldepryl, Marplan, Nardil, and Parnate This medicine may also interact with the following medications: alcohol barbiturates, like phenobarbital medicines for bladder spasm like oxybutynin, tolterodine medicines for blood pressure medicines for depression, anxiety, or psychotic disturbances medicines for movement abnormalities or Parkinson's disease medicines for sleep other medicines for cold, cough or allergy some medicines for the stomach like chlordiazepoxide, dicyclomine What if I miss a dose? If you miss a dose, take it as soon as you can. If it is almost time for your next dose, take only that dose. Do not take double or extra doses. Where should I keep my medicine? Keep out of the reach of children. Store at room temperature between 15 and 30 degrees C (59 and 86 degrees F). Keep container closed tightly. Throw away any unused medicine after the expiration date. What should I tell my health care provider before I take this medicine? They need to know if you have any of these conditions: glaucoma high blood pressure heart disease liver disease lung or breathing disease, like asthma pain or difficulty passing urine phenylketonuria prostate trouble ulcers or other stomach problems an unusual or allergic reaction to diphenhydramine, sulfites, other medicines foods, dyes, or preservatives or trying to get breast-feeding What should I watch for while using this medicine? Visit your doctor or health menagerie caretaker for regular check ups. Tell your doctor or healthcare professional if your symptoms do not start to get better or if they get worse. Your mouth may get dry. Chewing sugarless gum or sucking hard candy, and drinking plenty of water may help. Contact your doctor if the problem does not go away or is severe. This medicine may cause dry eyes and blurred vision. If you wear contact lenses you may feel some discomfort. Lubricating drops may help. See your eye doctor if the problem does not go away or is severe. You may get drowsy or dizzy. Do not drive, use machinery, or do anything that needs mental alertness until you know how this medicine affects you. Do not stand or sit up quickly, especially if you are an older patient. This reduces the risk of dizzy or fainting spells. Alcohol may interfere with the effect of this medicine. Avoid alcoholic drinks. You have been given the following additional information: Allergic Reaction, Drug Diphenhydramine Tannate Chewable tablet Do not work today, for one day until better. (Electronically signed by Rolly Mejia MD 07/24/2016 13:39)
== END 2016-07-24 12:00 | disposition home or self-care (01) ==
LOC: ED SRH 10:10
DX: T78.3XXA Angioneurotic edema, initial encounter (principal); T36.8X5A Adverse effect of other systemic antibiotics, initial encounter; L27.0 Generalized skin eruption due to drugs and medicaments taken internally; Z88.0 Allergy status to penicillin; Z91.040 Latex allergy status
CPT/HCPCS: 90004

== ENCOUNTER 2016-10-26 10:38 | Emergency (ER) | payer OTHER ==
--- NOTE | 2016-10-26 12:33 | DIAGNOSTIC IMAGING REPORT ---
PROCEDURE: XR CHEST 2 VIEW INDICATION: CHEST PAIN TECHNIQUE: PA and lateral views. COMPARISON: None. FINDINGS: Lungs are clear. Heart and mediastinum are normal. Thorax is normal. IMPRESSION: 1. Negative chest.
--- NOTE | 2016-10-26 16:42 | ED ORDER SUMMARY ---
..... Patient: VIGNESH KING OrderSheet [facility] VisitID: [id number] [place] [address] 26y, F Registration Date/Time: 10/26/2016 ORDER SHEET Weight: 86.1 kg (stated) Allergies: Latex, Penicillin GENERAL ORDERS: Chest 2V Urgent (12:11 10/26/2016 EKoroleva P.A.-C) (Ack 12:15 LNations ER Tech1) (13:04 HKone R.N.) Supplier Development Manager (Continuous) (12:11 10/26/2016 EKoroleva P.A.-C) (Ack 12:15 LNations ER Tech1) (12:19 Inez R.N.) Cardiac Panel Stat (12:11 10/26/2016 EKoroleva P.A.-C) (Ack 12:15 LNations ER Tech1) (12:51 LNations ER Tech1) Urine Urgent (12:11 10/26/2016 EKoroleva P.A.-C) (Ack 12:15 LNations ER Tech1) (13:04 HKone R.N.) EKG - ER Stat (12:11 10/26/2016 EKoroleva P.A.-C) (12:12 PWeiler ER Tech1) - (phosphorus) (13:43 10/26/2016 EKoroleva P.A.-C) (Ack 13:48 LNations ER Tech1) (18:55 Inez R.N.) UA-Culture if indicated Urgent (13:44 10/26/2016 EKoroleva P.A.-C) (Ack 13:49 LNations ER Tech1) (18:54 Inez R.N.) Urine Drug Screen Urgent (13:44 10/26/2016 EKoroleva P.A.-C) (Ack 13:49 LNations ER Tech1) (18:54 Inez R.N.) Diet (Please order in [employer]) (Regular Diet) (15:13 10/26/2016 LNations ER Tech1 verbal order read back to EKoroleva P.A.-C) (Ack 15:14 LNations ER Tech1) (16:12 PWeiler ER Tech1) MEDICATION ORDERS: IV FLUIDS: Toradol IV 30 mg (NOW) (12:47 10/26/2016 EKoroleva P.A.-C) (Ack 12:51 HKone R.N.) (Cancelled: Other13:48 EKoroleva P.A.-C) Magnesium Sulfate IV 2 gm/50mL (HIGH ALERT MEDICATION, NOW) (13:48 10/26/2016 EKoroleva P.A.-C) (Ack 13:55 HKone R.N.) (14:10 HKone R.N.) IV NS : initial bolus 250 mL (1000 mL/hr), then 250 mL/hr for X1 (NOW); Zafar (13:49 10/26/2016 EKoroleva P.A.-C) (Ack 13:55 HKone R.N.) (14:09 HKone R.N.) Ativan IV 0.5 mg (HIGH ALERT MEDICATION, NOW) (14:57 10/26/2016 EKoroleva P.A.-C) (Ack 15:01 HKone R.N.) (15:08 HKone R.N.) Toradol IV 30 mg (NOW) (16:45 10/26/2016 EKoroleva P.A.-C) (18:52 Inez R.Gary.) ORDER SHEET NOTES: [Electronically signed by Marisa Driver P.A.-C (18:45 10/26/2016)] [Electronically signed by Niru Can R.N. (18:57 10/26/2016)] [Electronically locked/signed by Niru Can R.N. (18:57 10/26/2016)]
--- NOTE | 2016-10-26 16:42 | ED NURSING NOTES ---
Clinical Report - Nurses [facility] [address] [place] [address] 10/26/2016 10:39 Patient: VIGNESH KING TRIAGE Triage time 1044. Acuity: LEVEL 3. Chief Complaint: CHEST PAIN and NECK PAIN. CROW COMA SCORE: Crow Coma Scale: 15- eyes open spontaneously (4); best verbal response- oriented x 4 (5); best motor response- obeys commands (6). --10:52 Selene Franco R.N. 10:44 10/26/16. BP: 151/90. HR: 102. RR: 20 (unlabored). O2 saturation: 100% on room air. Temp: 98.4 F (oral). Pain level now: 2/10. Additional comments: pt describes pain as sharp shooting pain from the right side of her neck down to right side and chest and right arm. pain okay at this time. . --10:52 Selene Franco R.N. Weight: 86.1 kg stated. Height/Length: 68 inches Per Patient. BMI: 28.9. --10:43 Selene Franco R.N. Medications None. --10:50 Selene Franco R.N. Medication/allergy information source: the patient. --10:52 Selene Franco R.N. Allergies Latex. Penicillin. --10:50 Selene Franco R.N. History Arrived by private vehicle. Historian: patient. Unaccompanied. Primary physician (none). ( pt c/o right side neck pain radiating down to right chest and right arm since 0830 today. pt states she's been dealing with HTN, undiagnosed. no family hx of cardiac. family hx of stroke.). This started today. ( pt states she felt a little nauseated and panicky when pain occurred.). 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 PAST MEDICAL HX: Last normal menstrual period- October 17. SOCIAL HX: Never smoker. Alcohol use. No drug use. ABUSE ASSESSMENT: No report of abuse. FALL RISK ASSESSMENT: Fall risk assessment completed. No fall risk identified. NUTRITIONAL RISK ASSESSMENT: The nutritional risk assessment revealed no deficiencies. FUNCTIONAL ASSESSMENT: Functional assessment: no impairments noted. LEARNING NEEDS ASSESSMENT: The learning needs assessment revealed no barriers. SKIN INTEGRITY ASSESSMENT: Skin integrity risk assessment completed. No skin integrity risk identified. --10:52 Selene Franco R.N. ADDITIONAL SURGERIES: . --10:50 Selene Franco R.N. Interventions ID band on patient. To treatment room. --10:52 Selene Franco R.N. PHYSICAL ASSESSMENT 10:55 pt c/o right neck pain radiating down to right chest and right arm. Ambulatory to room. GENERAL / NEURO / PSYCH: Alert. Oriented X 4. Appears in no acute distress. HEENT: Mucous membranes are pink. RESPIRATORY: Respirations not labored. Breath sounds within normal limits. CVS: Normal sinus rhythm noted. Cardiac rhythm: normal sinus rhythm. Pulses within normal limits. Capillary refill less than 2 seconds. EXTREMITIES: No lower extremity edema. SKIN: Skin is warm and dry. Normal skin turgor. Skin is non-tender. --11:36 Selene Franco R.N. NURSING PROGRESS NOTES Cardiac rhythm: normal sinus rhythm. monitoring analyst, pulse oximeter and NIBP monitor placed on patient; surveillance system monitor- Lead II. EKG time: (1046). EKG was performed by a tech and shown to the ED physician. Patient gowned. Two patient identifiers checked. Call light placed in reach. Side rails up x 1. Bed placed in lowest position. Brakes of bed on. Patient ready for evaluation. --10:52 Selene Franco R.N. correction to prior entry - EKG obtained at 10:47. --10:53 Selene Franco R.N. 11:41 10/26/16. BP: 122/76. HR: 81. RR: 20 (unlabored). O2 saturation: 100% on room air. Additional comments: pain is okay at this time. --11:42 Selene Franco R.N. pt waiting to see MD. --11:42 Selene Franco R.N. 13:00 pt refused Toradol, states her pain is better. --13:03 Selene Franco R.N. 13:00 10/26/16. BP: 129/86. HR: 83. RR: 18 (unlabored). O2 saturation: 100% on room air. Pain level now: 06/09. --13:03 Selene Franco R.N. 13:04 10/26/2016 Toradol IV 30 mg (NOW) was refused by patient because of pain has improved. Selene Franco --13:04 Selene Franco R.N. 13:54 10/26/2016 Site #1 started via IV in the right antecubital space with an 22g angiocath, with aseptic technique and good blood return; one attempt. Saline lock flushed with 10 mL saline. --13:54 Selene Franco R.N. lab called, Magnesium is critical, 0.1. notified PA. --13:55 Selene Franco R.N. pt c/o heart racing and hot. HR 01:10, pt appears anxious. Decreased rate of magnesium. notified PA, received orders. --14:59 Selene Franco R.N. correction to prior entry - received results from lab at 13:41. --13:56 Selene Franco R.N. 14:10/26/2016 Started bag #1 1000 mL IV Fluids IV NS (Saline); at 999 mL/hr over 15 minute(s) via site #1 via IV pump. IV patency established. IV site checked: no pain, redness, or swelling. IV flushed thoroughly pre- and post-medication administration. --14:09 Selene Franco R.N. 14:10 10/26/2016 Magnesium Sulfate (Magnesium Sulfate in D5W) IVP 2 gm given over 2 hour(s) via site #1. Allergies verified and confirmed 5 rights. IV patency established. IV site checked: no pain, redness, or swelling. IV flushed thoroughly pre- and post-medication administration (given via IV drip by nurse). --14:10 Selene Franco R.N. 14:00 10/26/16. BP: 128/87. HR: 77. RR: 16 (unlabored). O2 saturation: 99% on room air. Pain level now: 06/09. --14:21 Selene Franco R.N. Magnesium decreased to 15 ml/hr. --15:00 Selene Franco R.N. 15:07 10/26/16. BP: 163/106. HR: 110. RR: 22 (unlabored). O2 saturation: 99% on room air. Pain level now: 06/09. --15:07 Selene Franco R.N. 15:08 10/26/2016 Ativan (LORazepam) IVP 0.5 mg given over 1 minute(s) via site #1. Allergies verified, confirmed 5 rights and sedative warning given to the patient. IV patency established. IV site checked: no pain, redness, or swelling. IV flushed thoroughly pre- and post-medication administration. IVP given by RN. --15:08 Selene Franco R.N. 1535 pt given general food tray. pt's HR down to 90, BP 146/61. --16:00 Selene Franco R.N. 18:52 10/26/2016 Toradol IVP 30 mg given over 2 minute(s) via site #1. Allergies verified and confirmed 5 rights. IV patency established. IV site checked: no pain, redness, or swelling. IV flushed thoroughly pre- and post-medication administration. IVP given by RN. --18:52 Niru Can R.N. @16:40 Magnesium 50 ml IVPB was completed. --18:55 Niru Can R.N. 16:45. Reassessment after fluids administered and medication administered. She is calm and resting quietly. Overall patient status is improved- she states feels better. RESPIRATORY: No respiratory distress. SKIN: Skin is warm and dry. --18:56 Niru Can R.N. 16:45 10/26/2016 Site #1 removed upon discharge. Catheter intact. Bandaid applied. --18:56 Niru Can R.N. DISPOSITION / DISCHARGE Departure time: 164. Condition at departure: stable. No learning barriers present. Discharge instructions provided and reviewed with the patient. Work note given. Patient verbalized understanding. Written instructions provided in Citizen Of [place]. The patient was discharged home and unaccompanied at time of discharge. She left the Emergency Department ambulatory and via private vehicle. FALL RISK ASSESSMENT: Fall risk assessment completed. No fall risk identified. --17:36 Niru Can R.N. 16:45 10/26/16. BP: 144/91. HR: 97. RR: 17. O2 saturation: 100%. Pain level now: 10. --17:36 Niru Can R.N. Locked/Released at 10/26/2016 18:57 by Niru Can R.N.
--- NOTE | 2016-10-26 16:42 | ED CLINICAL REPORT ---
Clinical Report - Physicians/Mid Levels [facility] [address] [place] [address] 10/26/2016 10:39 Patient: VIGNESH KING Time Seen: 12:46 Oct 26 2016. Arrived- By private vehicle. Historian- patient. HISTORY OF PRESENT ILLNESS Chief Complaint: neck pain radiating into chest. This started just prior to arrival and is now gone. It has been intermittent. No loss of appetite or weight loss. (patient sentences morning has had intermittent neck pain radiating from her neck into her right chest. Sharp. Seizure-like pain lasting a few seconds and disappears. Patient denies any shortness of breath. Denies any new injury. Patient sleeping on a new mattress recently.). REVIEW OF SYSTEMS No fever, nasal congestion, nausea, diarrhea or chills. No difficulty with urination. All systems otherwise negative, except as recorded above. PAST HISTORY Problems: Allergic Reaction. Corneal Abrasion. Immunizations. LNMP - Last Normal Menstrual Period. Additional Surgeries: . Medications: None. Allergies: Latex. Penicillin. SOCIAL HISTORY Never smoker. Alcohol use. ADDITIONAL NOTES The nursing notes have been reviewed. PHYSICAL EXAM Vital Signs: 10/26/2016 10:44 BP: 151/90. HR: 102. RR: 20. O2 saturation: 100%. Temp: 98.4 F. Pain level now: 2/10. Appearance: Alert. Eyes: Eyes normal inspection. ENT: Nose normal. No pharyngeal erythema. The mucous membranes are not dry. Neck: Normal inspection. No carotid bruit or lymphadenopathy. CVS: Normal heart rate and rhythm. Heart sounds normal. Respiratory: No respiratory distress. Breath sounds normal. No accessory muscle use or decreased air movement. Abdomen: No visible injury. Soft. Bowel sounds normal. No abdominal tenderness. Back: Normal inspection. No CVA tenderness. Skin: Skin warm. Normal skin color. No rash. Neuro: Oriented X 3. LABS, X-RAYS, AND EKG EKG: EKG time: (1047). No acute process. No acute ischemia. Rate: 93. Normal P waves. Normal GIO. Normal QRS complex. Normal axis. Normal ST and T waves and QT. The study has been interpreted contemporaneously. The study has been independently viewed by me. The EKG appears to be a good tracing. Chest X-ray: (IMPRESSION: 1. Negative chest. Electronically Final signed by:Dario Schulz MD 10/26/2016 12:28:54 PM). Laboratory Tests: Urine: (FELIPA: 10/26/2016 12:32) ( MsgRcvd 10/26/2016 12:48) Final results Test Result Flag Units (Reference) URINE NEGATIVE CBC w Diff: (FELIPA: 10/26/2016 12:32) ( MsgRcvd 10/26/2016 12:45) Final results Test Result Flag Units (Reference) WHITE BLOOD COUNT 7.0 K/uL (4.5-11.5) RED BLOOD COUNT 4.84 M/uL (4.00-5.20) HEMOGLOBIN 13.5 gm/dL (12.0-16.0) HEMATOCRIT 39.9 % (36.0-46.0) MEAN CELL VOLUME 82 fL (80-100) MEAN CORPUSCULAR HGB 28 pg (26-34) MEAN CORPUSCULAR HGB CONC 34 g/dL (31-37) RED CELL DISTRIBUTION WIDTH 13.6 % (11.6-14.8) PLATELET COUNT 254 K/uL (150-400) NEUTROPHIL % 72.5 % (50-75) LYMPH % 20.9 L % (25-40) MONO % 5.4 % (3-14) EOSINOPHIL % 0.8 % (0-4) BASOPHIL % 0.4 % (0-2) CHEM 13 PANEL: (FELIPA: 10/26/2016 12:32) ( MsgRcvd 10/26/2016 14:59) Final results Test Result Flag Units (Reference) GLUCOSE 92 mg/dL (70-110) BUN 18 mg/dL (7-18) CREATININE 0.9 mg/dL (0.6-1.3) Estimated GFR >60 mL/min Estimated GFR- >60 mL/min Note: Persistent reduction over 3 months in eGFR<60 mL/min/1.73 m2 defines CKD. Patients with eGFR values>=60 mL/min/1.73 m2 may also have CKD if evidence ofpersistent proteinuria. Additional information may be foundat www.kidney.org. SODIUM 140 mmol/L (136-145) POTASSIUM 3.7 mmol/L (3.5-5.1) CHLORIDE 103 mmol/L (98-107) CARBON DIOXIDE 25 mmol/L (21-32) CALCIUM 8.7 mg/dL (8.5-10.1) TOTAL PROTEIN 8.0 g/dL (6.4-8.2) ALBUMIN < 0.6 L g/dL (3.3-5.0) BILIRUBIN, TOTAL 0.7 mg/dL (0.0-1.0) ALKALINE PHOSPHATASE 55 U/L (46-116) AST (SGOT) 16 U/L (15-37) ALT (SGPT) 23 U/L (12-78) MAGNESIUM 0.1 *L mg/dL (1.8-2.4) CRITICAL RESULTS CALLEDCalled to ZARA MCFARLANE, ER 10/26/16 1339Were 2 patient identifiers used? YESWas the result read back? YES CPK 127 U/L (24-260) TROPONIN I <0.05 ng/mL (0.00-1.5) TROPONIN REFERENCE RANGE:<0.1 NEGATIVE0.1-1.5 INDETERMINANT>1.5 POSITIVE PHOSPHORUS 3.3 mg/dL (2.5-4.9) . PROGRESS AND PROCEDURES Course of Care: Patient with hypomagnesemia. No cardiovascular risk factors. Patient with no chest pain. Patient given IV mag in the emergency department. Largely asymptomatic. Largely with no pain. Peripheral negative. Nonreproducible negative exam in the emergency department. 10/26/2016 16:45 BP: 144/91. HR: 97. RR: 17. O2 saturation: 100%. Pain level now: 09/07. 10/26/2016 14:00 BP: 128/87. HR: 77. RR: 16. O2 saturation: 99%. Pain level now: 06/09. 10/26/2016 13:00 BP: 129/86. HR: 83. RR: 18. O2 saturation: 100%. Pain level now: 06/09. Patient is stable. Physical exam findings are improved. Symptoms better. Patient/family counseled. Disposition: Discharged. Condition: good. CLINICAL IMPRESSION Severe hypomagnesemia. INSTRUCTIONS Do not work for two days. Warnings: Further evaluation is necessary. OTC Medications: Magnesium (available over the counter): Follow-up: Follow up with your doctor in two days. (Electronically signed by Marisa Driver P.A.-C 10/26/2016 18:45)
--- NOTE | 2016-10-26 16:42 | ED NURSING NOTES ---
Clinical Report - Nurses [facility] [address] [place] [address] 10/26/2016 10:39 Patient: VIGNESH KING TRIAGE Triage time 1044. Acuity: LEVEL 3. Chief Complaint: CHEST PAIN and NECK PAIN. CROW COMA SCORE: Crow Coma Scale: 15- eyes open spontaneously (4); best verbal response- oriented x 4 (5); best motor response- obeys commands (6). --10:52 Selene Franco R.N. 10:44 10/26/16. BP: 151/90. HR: 102. RR: 20 (unlabored). O2 saturation: 100% on room air. Temp: 98.4 F (oral). Pain level now: 2/10. Additional comments: pt describes pain as sharp shooting pain from the right side of her neck down to right side and chest and right arm. pain okay at this time. . --10:52 Selene Franco R.N. Weight: 86.1 kg stated. Height/Length: 68 inches Per Patient. BMI: 28.9. --10:43 Selene Franco R.N. Medications None. --10:50 Selene Franco R.N. Medication/allergy information source: the patient. --10:52 Selene Franco R.N. Allergies Latex. Penicillin. --10:50 Selene Franco R.N. History Arrived by private vehicle. Historian: patient. Unaccompanied. Primary physician (none). ( pt c/o right side neck pain radiating down to right chest and right arm since 0830 today. pt states she's been dealing with HTN, undiagnosed. no family hx of cardiac. family hx of stroke.). This started today. ( pt states she felt a little nauseated and panicky when pain occurred.). 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 PAST MEDICAL HX: Last normal menstrual period- October 17. SOCIAL HX: Never smoker. Alcohol use. No drug use. ABUSE ASSESSMENT: No report of abuse. FALL RISK ASSESSMENT: Fall risk assessment completed. No fall risk identified. NUTRITIONAL RISK ASSESSMENT: The nutritional risk assessment revealed no deficiencies. FUNCTIONAL ASSESSMENT: Functional assessment: no impairments noted. LEARNING NEEDS ASSESSMENT: The learning needs assessment revealed no barriers. SKIN INTEGRITY ASSESSMENT: Skin integrity risk assessment completed. No skin integrity risk identified. --10:52 Selene Franco R.N. ADDITIONAL SURGERIES: . --10:50 Selene Franco R.N. Interventions ID band on patient. To treatment room. --10:52 Selene Franco R.N. PHYSICAL ASSESSMENT 10:55 pt c/o right neck pain radiating down to right chest and right arm. Ambulatory to room. GENERAL / NEURO / PSYCH: Alert. Oriented X 4. Appears in no acute distress. HEENT: Mucous membranes are pink. RESPIRATORY: Respirations not labored. Breath sounds within normal limits. CVS: Normal sinus rhythm noted. Cardiac rhythm: normal sinus rhythm. Pulses within normal limits. Capillary refill less than 2 seconds. EXTREMITIES: No lower extremity edema. SKIN: Skin is warm and dry. Normal skin turgor. Skin is non-tender. --11:36 Selene Franco R.N. NURSING PROGRESS NOTES Cardiac rhythm: normal sinus rhythm. surgical physician assistant, pulse oximeter and NIBP monitor placed on patient; designer- Lead II. EKG time: (1046). EKG was performed by a tech and shown to the ED physician. Patient gowned. Two patient identifiers checked. Call light placed in reach. Side rails up x 1. Bed placed in lowest position. Brakes of bed on. Patient ready for evaluation. --10:52 Selene Franco R.N. correction to prior entry - EKG obtained at 10:47. --10:53 Selene Franco R.N. 11:41 10/26/16. BP: 122/76. HR: 81. RR: 20 (unlabored). O2 saturation: 100% on room air. Additional comments: pain is okay at this time. --11:42 Selene Franco R.N. pt waiting to see MD. --11:42 Selene Franco R.N. 13:00 pt refused Toradol, states her pain is better. --13:03 Selene Franco R.N. 13:00 10/26/16. BP: 129/86. HR: 83. RR: 18 (unlabored). O2 saturation: 100% on room air. Pain level now: 06/09. --13:03 Selene Franco R.N. 13:04 10/26/2016 Toradol IV 30 mg (NOW) was refused by patient because of pain has improved. Selene Franco --13:04 Selene Franco R.N. 13:54 10/26/2016 Site #1 started via IV in the right antecubital space with an 22g angiocath, with aseptic technique and good blood return; one attempt. Saline lock flushed with 10 mL saline. --13:54 Selene Franco R.N. lab called, Magnesium is critical, 0.1. notified PA. --13:55 Selene Franco R.N. pt c/o heart racing and hot. HR 01:10, pt appears anxious. Decreased rate of magnesium. notified PA, received orders. --14:59 Selene Franco R.N. correction to prior entry - received results from lab at 13:41. --13:56 Selene Franco R.N. 14:10/26/2016 Started bag #1 1000 mL IV Fluids IV NS (Saline); at 999 mL/hr over 15 minute(s) via site #1 via IV pump. IV patency established. IV site checked: no pain, redness, or swelling. IV flushed thoroughly pre- and post-medication administration. --14:09 Selene Franco R.N. 14:10 10/26/2016 Magnesium Sulfate (Magnesium Sulfate in D5W) IVP 2 gm given over 2 hour(s) via site #1. Allergies verified and confirmed 5 rights. IV patency established. IV site checked: no pain, redness, or swelling. IV flushed thoroughly pre- and post-medication administration (given via IV drip by nurse). --14:10 Selene Franco R.N. 14:00 10/26/16. BP: 128/87. HR: 77. RR: 16 (unlabored). O2 saturation: 99% on room air. Pain level now: 06/09. --14:21 Selene Franco R.N. Magnesium decreased to 15 ml/hr. --15:00 Selene Franco R.N. 15:07 10/26/16. BP: 163/106. HR: 110. RR: 22 (unlabored). O2 saturation: 99% on room air. Pain level now: 06/09. --15:07 Selene Franco R.N. 15:08 10/26/2016 Ativan (LORazepam) IVP 0.5 mg given over 1 minute(s) via site #1. Allergies verified, confirmed 5 rights and sedative warning given to the patient. IV patency established. IV site checked: no pain, redness, or swelling. IV flushed thoroughly pre- and post-medication administration. IVP given by RN. --15:08 Selene Franco R.N. 1535 pt given general food tray. pt's HR down to 90, BP 146/61. --16:00 Selene Franco R.N. 18:52 10/26/2016 Toradol IVP 30 mg given over 2 minute(s) via site #1. Allergies verified and confirmed 5 rights. IV patency established. IV site checked: no pain, redness, or swelling. IV flushed thoroughly pre- and post-medication administration. IVP given by RN. --18:52 Niru Can R.N. @16:40 Magnesium 50 ml IVPB was completed. --18:55 Niru Can R.N. 16:45. Reassessment after fluids administered and medication administered. She is calm and resting quietly. Overall patient status is improved- she states feels better. RESPIRATORY: No respiratory distress. SKIN: Skin is warm and dry. --18:56 Niru Can R.N. 16:45 10/26/2016 Site #1 removed upon discharge. Catheter intact. Bandaid applied. --18:56 Niru Can R.N. DISPOSITION / DISCHARGE Departure time: 164. Condition at departure: stable. No learning barriers present. Discharge instructions provided and reviewed with the patient. Work note given. Patient verbalized understanding. Written instructions provided in [place]. The patient was discharged home and unaccompanied at time of discharge. She left the Emergency Department ambulatory and via private vehicle. FALL RISK ASSESSMENT: Fall risk assessment completed. No fall risk identified. --17:36 Niru Can R.N. 16:45 10/26/16. BP: 144/91. HR: 97. RR: 17. O2 saturation: 100%. Pain level now: 10. --17:36 Niru Can R.N. Locked/Released at 10/26/2016 18:57 by Niru Can R.N.
--- NOTE | 2016-10-26 16:42 | ED ORDER SUMMARY ---
..... Patient: VIGNESH KING OrderSheet [facility] VisitID: [id number] [place] [address] 26y, F Registration Date/Time: 10/26/2016 ORDER SHEET Weight: 86.1 kg (stated) Allergies: Latex, Penicillin GENERAL ORDERS: Chest 2V Urgent (12:11 10/26/2016 EKoroleva P.A.-C) (Ack 12:15 LNations ER Tech1) (13:04 HKone R.N.) Head Animal Keeper (Continuous) (12:11 10/26/2016 EKoroleva P.A.-C) (Ack 12:15 LNations ER Tech1) (12:19 Inez R.N.) Cardiac Panel Stat (12:11 10/26/2016 EKoroleva P.A.-C) (Ack 12:15 LNations ER Tech1) (12:51 LNations ER Tech1) Urine Urgent (12:11 10/26/2016 EKoroleva P.A.-C) (Ack 12:15 LNations ER Tech1) (13:04 HKone R.N.) EKG - ER Stat (12:11 10/26/2016 EKoroleva P.A.-C) (12:12 PWeiler ER Tech1) - (phosphorus) (13:43 10/26/2016 EKoroleva P.A.-C) (Ack 13:48 LNations ER Tech1) (18:55 Inez R.N.) UA-Culture if indicated Urgent (13:44 10/26/2016 EKoroleva P.A.-C) (Ack 13:49 LNations ER Tech1) (18:54 Inez R.N.) Urine Drug Screen Urgent (13:44 10/26/2016 EKoroleva P.A.-C) (Ack 13:49 LNations ER Tech1) (18:54 Inez R.N.) Diet (Please order in [employer]) (Regular Diet) (15:13 10/26/2016 LNations ER Tech1 verbal order read back to EKoroleva P.A.-C) (Ack 15:14 LNations ER Tech1) (16:12 PWeiler ER Tech1) MEDICATION ORDERS: IV FLUIDS: Toradol IV 30 mg (NOW) (12:47 10/26/2016 EKoroleva P.A.-C) (Ack 12:51 HKone R.N.) (Cancelled: Other13:48 EKoroleva P.A.-C) Magnesium Sulfate IV 2 gm/50mL (HIGH ALERT MEDICATION, NOW) (13:48 10/26/2016 EKoroleva P.A.-C) (Ack 13:55 HKone R.N.) (14:10 HKone R.N.) IV NS : initial bolus 250 mL (1000 mL/hr), then 250 mL/hr for X1 (NOW); Zafar (13:49 10/26/2016 EKoroleva P.A.-C) (Ack 13:55 HKone R.N.) (14:09 HKone R.N.) Ativan IV 0.5 mg (HIGH ALERT MEDICATION, NOW) (14:57 10/26/2016 EKoroleva P.A.-C) (Ack 15:01 HKone R.N.) (15:08 HKone R.N.) Toradol IV 30 mg (NOW) (16:45 10/26/2016 EKoroleva P.A.-C) (18:52 Inez R.Gary.) ORDER SHEET NOTES: [Electronically signed by Marisa Driver P.A.-C (18:45 10/26/2016)] [Electronically signed by Niru Can R.N. (18:57 10/26/2016)] [Electronically locked/signed by Niru Can R.N. (18:57 10/26/2016)]
--- NOTE | 2016-10-26 18:57 | ED MED RECONCILIATION SUMMARY ---
Patient: VIGNESH KING Medication Reconciliation Report [facility] VisitID: [id number] [place] [address] 26y, F Registration Date/Time: 10/26/2016 Weight: 86.1 kg Height/Length: 68 in. BMI: 28.9 ALLERGIES: Latex, Penicillin The patient's Home Medications are listed below: NONE. The source(s) of the original Home Medication information: patient The following Medications were given to the patient in the Emergency Department: IV NS IV Fluids bolus 0, then 999 mL/hr, administered: 10/26/2016 2:09:00 PM Magnesium Sulfate [IVP] IVP 2 gm, administered: 10/26/2016 2:10:00 PM Ativan [IVP] IVP 0.5 mg, administered: 10/26/2016 3:08:00 PM Toradol [IVP] IVP 30 mg, administered: 10/26/2016 6:52:00 PM The following Medications were prescribed to the patient: Magnesium (available over the counter): -- Marisa Driver P.A.-C
--- NOTE | 2016-10-26 18:57 | ED MAR SUMMARY ---
..... Medication Administration Record [facility] [address] [place] [address] Patient: VIGNESH KING Visit ID: [id number] 26y, F Weight: 86.1 kg Height/Length: 68 in BMI: 28.9 ALLERGIES: Latex, Penicillin Start 14:09 10/26/2016 Selene Franco R.N. Medication Administered: IV NS (SALINE), Dose: IV Fluids over 15 minute(s), Rate: 999 mL/hr, Dispensed: 1000 mL bag, Site: #1 right AC. Medication Ordered: IV NS : initial bolus 250 mL (1000 mL/hr), then 250 mL/hr for X1 (NOW); Zafar. Given 14:10 10/26/2016 Selene Franco R.N. Medication Administered: MAGNESIUM SULFATE [IVP] (MAGNESIUM SULFATE IN D5W), Dose: 2 gm IVP over 2 hour(s), Site: #1 right AC. Medication Ordered: Magnesium Sulfate IV 2 gm/50mL (HIGH ALERT MEDICATION, NOW). Given 15:08 10/26/2016 Selene Franco R.N. Medication Administered: ATIVAN [IVP] (LORAZEPAM), Dose: 0.5 mg IVP over 1 minute(s), Site: #1 right AC. Medication Ordered: Ativan IV 0.5 mg (HIGH ALERT MEDICATION, NOW). Given 18:52 10/26/2016 Niru Can R.N. Medication Administered: TORADOL [IVP], Dose: 30 mg IVP over 2 minute(s), Site: #1. Medication Ordered: Toradol IV 30 mg (NOW).
--- NOTE | 2016-10-26 18:57 | ED DISCHARGE INSTRUCTIONS ---
Patient: VIGNESH KING General Instructions [facility] VisitID: [id number] [address] [place] [place] [address] 26y, F Registration Date/Time: 10/26/2016 Severe hypomagnesemia. INSTRUCTIONS Do not work for two days. Warnings: Further evaluation is necessary. OTC Medications: Magnesium (available over the counter): Follow-up: Follow up with your doctor in two days. Do not work for two days. (Electronically signed by Marisa Driver P.A.-C 10/26/2016 18:45)
--- NOTE | 2016-10-26 18:57 | ED MAR SUMMARY ---
..... Medication Administration Record [facility] [address] [place] [address] Patient: VIGNESH KING Visit ID: [id number] 26y, F Weight: 86.1 kg Height/Length: 68 in BMI: 28.9 ALLERGIES: Latex, Penicillin Start 14:09 10/26/2016 Selene Franco R.N. Medication Administered: IV NS (SALINE), Dose: IV Fluids over 15 minute(s), Rate: 999 mL/hr, Dispensed: 1000 mL bag, Site: #1 right AC. Medication Ordered: IV NS : initial bolus 250 mL (1000 mL/hr), then 250 mL/hr for X1 (NOW); Zafar. Given 14:10 10/26/2016 Selene Franco R.N. Medication Administered: MAGNESIUM SULFATE [IVP] (MAGNESIUM SULFATE IN D5W), Dose: 2 gm IVP over 2 hour(s), Site: #1 right AC. Medication Ordered: Magnesium Sulfate IV 2 gm/50mL (HIGH ALERT MEDICATION, NOW). Given 15:08 10/26/2016 Selene Franco R.N. Medication Administered: ATIVAN [IVP] (LORAZEPAM), Dose: 0.5 mg IVP over 1 minute(s), Site: #1 right AC. Medication Ordered: Ativan IV 0.5 mg (HIGH ALERT MEDICATION, NOW). Given 18:52 10/26/2016 Niru Can R.N. Medication Administered: TORADOL [IVP], Dose: 30 mg IVP over 2 minute(s), Site: #1. Medication Ordered: Toradol IV 30 mg (NOW).
--- NOTE | 2016-10-26 18:57 | ED MED RECONCILIATION SUMMARY ---
Patient: VIGNESH KING Medication Reconciliation Report [facility] VisitID: [id number] [place] [address] 26y, F Registration Date/Time: 10/26/2016 Weight: 86.1 kg Height/Length: 68 in. BMI: 28.9 ALLERGIES: Latex, Penicillin The patient's Home Medications are listed below: NONE. The source(s) of the original Home Medication information: patient The following Medications were given to the patient in the Emergency Department: IV NS IV Fluids bolus 0, then 999 mL/hr, administered: 10/26/2016 2:09:00 PM Magnesium Sulfate [IVP] IVP 2 gm, administered: 10/26/2016 2:10:00 PM Ativan [IVP] IVP 0.5 mg, administered: 10/26/2016 3:08:00 PM Toradol [IVP] IVP 30 mg, administered: 10/26/2016 6:52:00 PM The following Medications were prescribed to the patient: Magnesium (available over the counter): -- Marisa Driver P.A.-C
--- NOTE | 2016-10-26 18:57 | ED DISCHARGE INSTRUCTIONS ---
Patient: VIGNESH KING General Instructions [facility] VisitID: [id number] [address] [place] [address] 26y, F Registration Date/Time: 10/26/2016 Severe hypomagnesemia. INSTRUCTIONS Do not work for two days. Warnings: Further evaluation is necessary. OTC Medications: Magnesium (available over the counter): Follow-up: Follow up with your doctor in two days. Do not work for two days. (Electronically signed by Marisa Driver P.A.-C 10/26/2016 18:45)
== END 2016-10-26 16:45 | disposition home or self-care (01) ==
LOC: ED SRH 10:38
DX: E83.42 Hypomagnesemia (principal); M54.2 Cervicalgia; Z88.0 Allergy status to penicillin; Z91.040 Latex allergy status
CPT/HCPCS: 90004; 90074; 90100; 90616; 92610; 92720; 92740; 92760; 92761; 92762; 92763; 92764; 92765; 92766; 92767; 93070; 95059

== ENCOUNTER 2016-10-30 11:37 | Outpatient (CLI) | payer OTHER | END 2016-10-30 23:00 | LOC: LAB SRH 11:37 | DX: R00.2 Palpitations (principal); R06.02 Shortness of breath; R07.9 Chest pain, unspecified | CPT/HCPCS: 90074; 90100; 90648; 91282; 91286; 92720; 93140; 95059 ==

== ENCOUNTER 2016-10-31 10:30 | Emergency (ER) | payer OTHER ==
--- NOTE | 2016-10-31 12:13 | ED ORDER SUMMARY ---
..... 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) (11:10/31/2016 Cathleen Gudino) (11:11 MWinterer R.N.) CBC w Diff Urgent (11:10/31/2016 Cathleen Gudino) (Ack 11:07 Roc) (11:16 SRoberts R.N.) CMP Urgent (11:10/31/2016 Cathleen Gudino) (Ack 11:07 Roc) (11:16 SRoberts R.N.) UA-Culture if indicated Urgent (11:10/31/2016 Cathleen Gudino) (Ack 11:07 Roc) (11:16 SRoberts R.N.) Urine Urgent (11:10/31/2016 Cathleen Gudino) (Ack 11:07 Roc) (11:16 SRoberts R.N.) Magnesium Urgent (11:10/31/2016 Cathleen Gudino) (Ack 11:07 Roc) (11:16 SRoberts R.N.) TSH Urgent (11:10/31/2016 Cathleen Gudino) (Ack 11:07 Roc) (11:16 SRoberts R.N.) EKG - ER Stat (11:10/31/2016 Cathleen Gudino) (11:15 Roc) Pulse oximeter (11:10/31/2016 Cathleen Gudino) (11:11 MWinterer R.N.) MEDICATION ORDERS: IV FLUIDS: IV Saline Lock (10:50 10/31/2016 Shawnee R.N. per protocol) (10:51 SRoberts R.N.) Toradol IV 30 mg (NOW) (11:05 10/31/2016 Cathleen Gudino) (11:33 Shawnee Syed) IV Saline Lock (11:10/31/2016 Cathleen Gudino) (11:11 Ivan Syed) ORDER SHEET NOTES: [Electronically signed by Yohana Avila R.N. (12:45 10/31/2016)] [Electronically signed by Jackson Bland Dr. (09:30 11/03/2016)] [Electronically locked/signed by Yohana Avila R.N. (12:45 10/31/2016)]
--- NOTE | 2016-10-31 12:13 | ED NURSING NOTES ---
Clinical Report - Nurses [facility] [address] [place] [place] [address] 10/31/2016 10:30 Patient: VIGNESH KING TRIAGE Triage time 10:35. Acuity: LEVEL 3. Chief Complaint: HEADACHE. Alert. No acute distress. CROW COMA SCORE: Crow Coma Scale: 15- eyes open spontaneously (4); best verbal response- oriented x 4 (5); best motor response- obeys commands (6). --10:39 Lacho Dominguez R.N. 10:34 10/31/16. BP: 171/95. HR: 90. RR: 22. O2 saturation: 100% on room air. Temp: 97.9 F (oral). Pain level now 7/10. --10:39 Lacho Dominguez R.N. Weight: 88.4 kg stated. Height/Length: 68 inches Per Patient. BMI: 29.6. --10:36 Lacho Dominguez R.N. Medications Magnesium Oral. --10:37 Lacho Dominguez R.N. Allergies Latex. Penicillin. --10:37 Lacho Dominguez R.N. Medication/allergy information source: the patient. --10:39 Lacho Dominguez R.N. History Arrived by private vehicle. Historian: patient. Primary physician ([facility]). ( c/o pulsating headache and racing heart rate. states she was here 1 week ago and dx with low magnesium.). This started last night. 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 PAST MEDICAL HX: Last normal menstrual period was 2 weeks ago. SOCIAL HX: Never smoker. Occasional alcohol use. No drug use. FALL RISK ASSESSMENT: Fall risk assessment completed. No fall risk identified. NUTRITIONAL RISK ASSESSMENT: The nutritional risk assessment revealed no deficiencies. FUNCTIONAL ASSESSMENT: Functional assessment: no impairments noted. LEARNING NEEDS ASSESSMENT: The learning needs assessment revealed no barriers. SKIN INTEGRITY ASSESSMENT: Skin integrity risk assessment completed. No skin integrity risk identified. --10:39 Lacho Dominguez R.N. PROBLEMS: Hypomagnesemia. Allergic Reaction. Corneal Abrasion. --10:37 Lacho Dominguez R.N. ADDITIONAL SURGERIES: . --10:37 Lacho Dominguez R.N. Interventions ID band on patient. To treatment room. --10:39 Lacho Dominguez R.N. PHYSICAL ASSESSMENT 10:39 10/31/16. Ambulatory to room. GENERAL / NEURO / PSYCH: Alert. Oriented X 4. Appears anxious. Speech within normal limits. HEENT: No facial asymmetry noted. RESPIRATORY: Respirations not labored. CVS: Capillary refill less than 2 seconds. GI / : Abdomen soft. SKIN: Skin is warm and dry. --10:39 Lacho Dominguez R.N. NURSING PROGRESS NOTES The plan of care for this patient has been created. Patient gowned. Head of bed elevated. Call light placed in reach. Bed placed in lowest position. Brakes of bed on. Patient ready for evaluation- chart flagged. --10:39 Lacho Dominguez R.N. 10:50 10/31/2016 Site #1 started via IV in the left antecubital space with an 22g angiocath, with aseptic technique and good blood return; one attempt. Blood drawn: rainbow set. Labeled in the presence of the patient and sent to the lab. Saline lock flushed with 10 mL saline. --10:50 Yohana Avila R.N. 10:55. Patient ID band checked for patient name: patient confirmed. Instructions provided to collect clean catch urine and patient verbalized understanding. Clean catch urine collected with return of yellow-colored clear urine; sample sent to lab for urinalysis and culture. Specimen labeled in the presence of the patient. --10:59 Yohana Avila R.N. EKG time: (1116). EKG was ordered, performed by a tech and shown to the ED physician. --11:30 Jenny Polo 11:18 10/31/2016 Toradol IVP 30 mg given over 1 minute(s) via site #1. Allergies verified and confirmed 5 rights. IV patency established. IV site checked: no pain, redness, or swelling. IV flushed thoroughly pre- and post-medication administration. IVP given by RN. --11:33 Yohana Avila R.N. DISPOSITION / DISCHARGE 12:20. Condition at departure: improved. No learning barriers present. Reviewed medication(s) side effects, precautions and dosing information. Prescription(s) given to the patient. Medication(s) course not reviewed. Patient verbalized understanding. Written instructions provided in Serbian. The patient was discharged home. She left the Emergency Department ambulatory and via private vehicle. Patient driving. Medication list reviewed and validated. --12:44 Yohana Avila R.N. 12:20 10/31/16. BP: 115/73. HR: 71. RR: 18. O2 saturation: 99% on room air. Temp: deferred. Pain level now: 07/10. 11:10/31/16. BP: 127/77. HR: 79. RR: 16. O2 saturation: 99% on room air. 10:34 10/31/16. BP: 171/95. HR: 90. RR: 22. O2 saturation: 100% on room air. Temp: 97.9 F (oral). Pain level now 12/07. --12:44 Yohana Avila R.N. 12:20 10/31/16. BP: 115/73. HR: 71. RR: 18. O2 saturation: 99% on room air. Temp: deferred. Pain level now: 07/10. 11:08 10/31/16. BP: 127/77. HR: 79. RR: 16. O2 saturation: 99% on room air. 10:34 10/31/16. BP: 171/95. HR: 90. RR: 22. O2 saturation: 100% on room air. Temp: 97.9 F (oral). Pain level now 12/07. --12:44 Yohana Avila R.N. Locked/Released at 10/31/2016 12:45 by Yohana Avila R.N.
--- NOTE | 2016-10-31 12:13 | ED ORDER SUMMARY ---
..... Patient: VIGNESH KING OrderSheet [facility] VisitID: [id number] [address] [place] [address] 26y, F Registration Date/Time: 10/31/2016 ORDER SHEET Weight: 88.4 kg (stated) Allergies: Latex, Penicillin GENERAL ORDERS: - (serum phosphate level) (11:10/31/2016 Cathleen Gudino) (Ack 11:29 Roc) (11:34 SRoberts R.N.) Entry Level Receptionist (Continuous) (palpitations) (11:10/31/2016 Cathleen Gudino) (11:11 MWinterer R.N.) CBC w Diff Urgent (11:10/31/2016 Cathleen Gudino) (Ack 11:07 Roc) (11:16 SRoberts R.N.) CMP Urgent (11:10/31/2016 Cathleen Gudino) (Ack 11:07 Roc) (11:16 SRoberts R.N.) UA-Culture if indicated Urgent (11:10/31/2016 Cathleen Gudino) (Ack 11:07 Roc) (11:16 SRoberts R.N.) Urine Urgent (11:10/31/2016 Cathleen Gudino) (Ack 11:07 Roc) (11:16 SRoberts R.N.) Magnesium Urgent (11:10/31/2016 Cathleen Gudino) (Ack 11:07 Roc) (11:16 SRoberts R.N.) TSH Urgent (11:10/31/2016 Cathleen Gudino) (Ack 11:07 Roc) (11:16 SRoberts R.N.) EKG - ER Stat (11:10/31/2016 Cathleen Gudino) (11:15 Roc) Pulse oximeter (11:10/31/2016 Cathleen Gudino) (11:11 MWinterer R.N.) MEDICATION ORDERS: IV FLUIDS: IV Saline Lock (10:50 10/31/2016 Shawnee R.N. per protocol) (10:51 SRoberts R.N.) Toradol IV 30 mg (NOW) (11:05 10/31/2016 Cathleen Gudino) (11:33 Shawnee Syed) IV Saline Lock (11:10/31/2016 Cathleen Gudino) (11:11 Ivan Syed) ORDER SHEET NOTES: [Electronically signed by Yohana Avila R.N. (12:45 10/31/2016)] [Electronically signed by Jackson Bland Dr. (09:30 11/03/2016)] [Electronically locked/signed by Yohana Avila R.N. (12:45 10/31/2016)]
--- NOTE | 2016-10-31 12:13 | ED CLINICAL REPORT ---
Clinical Report - Physicians/Mid Levels [facility] [address] [place] [address] 10/31/2016 10:30 Patient: VIGNESH KING Time Seen: 1059. Arrived- By private vehicle. Historian- patient. HISTORY OF PRESENT ILLNESS Chief Complaint: PALPITATIONS. This started today and is still present (unchanged). It was abrupt in onset and has been constant but is not gone now. Can not recall activity at onset. No history of amphetamine use prior to onset. Modifying factors. Not worsened by anything. Not relieved by anything. It is described as a fast heart beat. She did not lose consciousness. Not described as dizziness. No chest pain or discomfort, difficulty breathing, sweating episodes or fainting episodes. No dizziness, tingling or muscle spasms. ( reports on hx of recent surgery, trauma, leg swelling, hx of DVT/PE, hemoptysis, or OCP use. reports muscle cramps and aches.). Similar symptoms previously: (a few times). Recent medical care: The patient was seen recently in the emergency department (states she was told her mag was low. she says she is still taking her mag supplements.). REVIEW OF SYSTEMS All systems otherwise negative, except as recorded above. PAST HISTORY See nurses notes. Medications: Magnesium Oral. Allergies: Latex. Penicillin. SOCIAL HISTORY Never smoker. No alcohol use or drug use. No recent travel. Is a local resident. ADDITIONAL NOTES The nursing notes have been reviewed. PHYSICAL EXAM Vital Signs: 10/31/2016 10:34 BP: 171/95. HR: 90. RR: 22. O2 saturation: 100%. Temp: 97.9 F. Blood pressure normal. Oxygen saturation normal. Appearance: Alert. Oriented X3. No acute distress. Eyes: Pupils equal, round and reactive to light. Eyes normal inspection. ENT: Ears normal. Nose normal. Pharynx normal. Neck: Normal inspection. Neck supple. CVS: Normal heart rate and rhythm. Heart sounds normal. Pulses normal. Respiratory: No respiratory distress. Breath sounds normal. Chest nontender. Abdomen: Soft and nontender. Bowel sounds normal. Skin: Skin warm and dry. Normal skin color. No rash. Normal skin turgor. Extremities: Extremities exhibit normal ROM. No lower extremity edema. Neuro: Oriented X 3. No motor deficit. No sensory deficit. LABS, X-RAYS, AND EKG EKG: No acute ischemia. Normal sinus rhythm. Rate: 82. Normal P waves. Normal GIO. Normal QRS complex. Normal axis. Normal ST and T waves, QT and QTc. EKG unchanged when compared with prior EKG. (10/26/16). The study has been interpreted contemporaneously. The study has been independently viewed by me. The EKG appears to be a good tracing. Laboratory Tests: UA-Culture if indicated: (FELIPA: 10/31/2016 11:10) ( [facility] 10/31/2016 11:27) Final results Test Result Flag Units (Reference) URINE COLOR YELLOW URINE APPEARANCE CLEAR URINE GLUCOSE NEGATIVE (NEGATIVE) URINE BILIRUBIN NEGATIVE (NEGATIVE) URINE KETONE NEGATIVE (NEGATIVE) URINE SPECIFIC GRAVITY <= 1.005 L (1.010-1.030) URINE PH 5.5 (5.0-8.0) URINE PROTEIN NEGATIVE (NEGATIVE) URINE UROBILINOGEN 0.2 EU/dL (0.2-1.0) URINE NITRITE NEGATIVE (NEGATIVE) URINE BLOOD TRACE-INTACT (NEGATIVE) URINE LEUK ESTERASE NEGATIVE (NEGATIVE) URINE RBC NONE SEEN rbc/hpf (0-1) URINE WBC NONE SEEN wbc/hpf (0-1) URINE EPITHELIAL CELLS 0-1 EPI/hpf (0-5) URINE BACTERIA NONE SEEN (NONE SEEN) URINE COMMENT CULT NOT INDICATED URINE CULTURES ARE SET-UP BASED ON THE FOLLOWING CRITERIA:POSITIVE NITRITEPOSITIVE LEUKOCYTE ESTERASEGREATER THAN 10 WHITE BLOOD CELLSMODERATE (2+) OR GREATER BACTERIA Urine: (FELIPA: 10/31/2016 11:10) ( [facility] 10/31/2016 11:20) Final results Test Result Flag Units (Reference) URINE NEGATIVE CBC w Diff: (FELIPA: 10/31/2016 10:40) ( [facility] 10/31/2016 11:46) Final results Test Result Flag Units (Reference) WHITE BLOOD COUNT 5.2 K/uL (4.5-11.5) RED BLOOD COUNT 4.95 M/uL (4.00-5.20) HEMOGLOBIN 13.7 gm/dL (12.0-16.0) HEMATOCRIT 41.0 % (36.0-46.0) MEAN CELL VOLUME 83 fL (80-100) MEAN CORPUSCULAR HGB 28 pg (26-34) MEAN CORPUSCULAR HGB CONC 34 g/dL (31-37) RED CELL DISTRIBUTION WIDTH 14.0 % (11.6-14.8) PLATELET COUNT 246 K/uL (150-400) NEUTROPHIL % 54.4 % (50-75) LYMPH % 30.1 % (25-40) MONO % 13.7 % (3-14) EOSINOPHIL % 1.1 % (0-4) BASOPHIL % 0.7 % (0-2) CMP: (FELIPA: 10/31/2016 10:40) ( [facility] 10/31/2016 11:34) Final results Test Result Flag Units (Reference) GLUCOSE 100 mg/dL (70-110) BUN 14 mg/dL (7-18) CREATININE 0.9 mg/dL (0.6-1.3) Estimated GFR >60 mL/min Estimated GFR- >60 mL/min Note: Persistent reduction over 3 months in eGFR<60 mL/min/1.73 m2 defines CKD. Patients with eGFR values>=60 mL/min/1.73 m2 may also have CKD if evidence ofpersistent proteinuria. Additional information may be foundat www.kidney.org. SODIUM 141 mmol/L (136-145) POTASSIUM 3.6 mmol/L (3.5-5.1) CHLORIDE 104 mmol/L (98-107) CARBON DIOXIDE 26 mmol/L (21-32) CALCIUM 9.3 mg/dL (8.5-10.1) TOTAL PROTEIN 8.5 H g/dL (6.4-8.2) ALBUMIN 4.3 g/dL (3.3-5.0) BILIRUBIN, TOTAL 0.5 mg/dL (0.0-1.0) ALKALINE PHOSPHATASE 58 U/L (46-116) AST (SGOT) 17 U/L (15-37) ALT (SGPT) 31 U/L (12-78) MAGNESIUM 2.1 mg/dL (1.8-2.4) PHOSPHORUS 3.2 mg/dL (2.5-4.9) THYROID STIMULATING HORMONE 5.366 H uIU/mL (0.34-3.74) . PROGRESS AND PROCEDURES Course of Care: the patient is a pleasant 26-year-old female with no pertinent past medical history except forwhat she reports as subclinical hypothyroidism and hypomagnesemia presenting for evaluation of palpitations and muscle cramps. At this time, differential diagnosis includes electrolyte disturbances/abnormality or conduction abnormality. Patient will be evaluated with EKG and laboratory studies. Patient is PERC negative. patient is agreeable to the treatment and plan. The patient's workup was markable for the findings above. No significant abnormalities noted on patient's EKG. Thyroid level appears to bewithin patient's normal range of subclinical hypothyroidism. Magnesium levels are normal. No other electrolyte abnormalities noted. Because the patient's negative workup here in the emergency department, do not feel patient requires further evaluation in the emergency department or admission to the hospital. Patient will be encouraged to follow up with her primary care Dr. Had a discussion with the patient in regards to her workup here in the emergency department including diagnosis, home care, follow-up, and return precautions. All questions answered. The patient expressed understanding of theseinstructions and was agreeable to them. Disposition: Discharged. Condition: good. CLINICAL IMPRESSION Acute headache. Palpitations (acute). INSTRUCTIONS Warnings: GENERAL WARNINGS: Return or contact your physician immediately if your condition worsens or changes unexpectedly, if not improving as expected, or if other problems arise. SPECIFICALLY, return if you develop chest, neck, jaw, shoulder, arm, or back pain, difficulty breathing, a fluttering sensation in your chest, lightheadedness, fainting, excessive fatigue, or sudden sweating. Your Current Medications: CONTINUE TAKING THE FOLLOWING MEDICATIONS: Magnesium Oral. Prescription Medications: Fioricet: take 1 orally every 6 hours as needed for pain or headache. Dispense thirty (30). No refills. Substitution is permissible. Follow-up: Return to the emergency department as needed. Follow up with your doctor in three days. Reason for referral: recheck today's concerns. Summary of care provided to patient via paper. Screening today revealed the patient's blood pressure to be in the normal range. The patient should follow up with a primary care provider for blood pressure management. Understanding of the discharge instructions verbalized by patient. (Electronically signed by Jackson Bland Dr. 11/03/2016 9:30)
--- NOTE | 2016-10-31 12:13 | ED NURSING NOTES ---
Clinical Report - Nurses [facility] [address] [place] [address] 10/31/2016 10:30 Patient: VIGNESH KING TRIAGE Triage time 10:35. Acuity: LEVEL 3. Chief Complaint: HEADACHE. Alert. No acute distress. CROW COMA SCORE: Crow Coma Scale: 15- eyes open spontaneously (4); best verbal response- oriented x 4 (5); best motor response- obeys commands (6). --10:39 Lacho Dominguez R.N. 10:34 10/31/16. BP: 171/95. HR: 90. RR: 22. O2 saturation: 100% on room air. Temp: 97.9 F (oral). Pain level now 7/10. --10:39 Lacho Dominguez R.N. Weight: 88.4 kg stated. Height/Length: 68 inches Per Patient. BMI: 29.6. --10:36 Lacho Dominguez R.N. Medications Magnesium Oral. --10:37 Lacho Dominguez R.N. Allergies Latex. Penicillin. --10:37 Lacho Dominguez R.N. Medication/allergy information source: the patient. --10:39 Lacho Dominguez R.N. History Arrived by private vehicle. Historian: patient. Primary physician ([facility]). ( c/o pulsating headache and racing heart rate. states she was here 1 week ago and dx with low magnesium.). This started last night. 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 PAST MEDICAL HX: Last normal menstrual period was 2 weeks ago. SOCIAL HX: Never smoker. Occasional alcohol use. No drug use. FALL RISK ASSESSMENT: Fall risk assessment completed. No fall risk identified. NUTRITIONAL RISK ASSESSMENT: The nutritional risk assessment revealed no deficiencies. FUNCTIONAL ASSESSMENT: Functional assessment: no impairments noted. LEARNING NEEDS ASSESSMENT: The learning needs assessment revealed no barriers. SKIN INTEGRITY ASSESSMENT: Skin integrity risk assessment completed. No skin integrity risk identified. --10:39 Lacho Dominguez R.N. PROBLEMS: Hypomagnesemia. Allergic Reaction. Corneal Abrasion. --10:37 Lacho Dominguez R.N. ADDITIONAL SURGERIES: . --10:37 Lacho Dominguez R.N. Interventions ID band on patient. To treatment room. --10:39 Lacho Dominguez R.N. PHYSICAL ASSESSMENT 10:39 10/31/16. Ambulatory to room. GENERAL / NEURO / PSYCH: Alert. Oriented X 4. Appears anxious. Speech within normal limits. HEENT: No facial asymmetry noted. RESPIRATORY: Respirations not labored. CVS: Capillary refill less than 2 seconds. GI / : Abdomen soft. SKIN: Skin is warm and dry. --10:39 Lacho Dominguez R.N. NURSING PROGRESS NOTES The plan of care for this patient has been created. Patient gowned. Head of bed elevated. Call light placed in reach. Bed placed in lowest position. Brakes of bed on. Patient ready for evaluation- chart flagged. --10:39 Lacho Dominguez R.N. 10:50 10/31/2016 Site #1 started via IV in the left antecubital space with an 22g angiocath, with aseptic technique and good blood return; one attempt. Blood drawn: rainbow set. Labeled in the presence of the patient and sent to the lab. Saline lock flushed with 10 mL saline. --10:50 Yohana Avila R.N. 10:55. Patient ID band checked for patient name: patient confirmed. Instructions provided to collect clean catch urine and patient verbalized understanding. Clean catch urine collected with return of yellow-colored clear urine; sample sent to lab for urinalysis and culture. Specimen labeled in the presence of the patient. --10:59 Yohana Avila R.N. EKG time: (1116). EKG was ordered, performed by a tech and shown to the ED physician. --11:30 Jenny Polo 11:18 10/31/2016 Toradol IVP 30 mg given over 1 minute(s) via site #1. Allergies verified and confirmed 5 rights. IV patency established. IV site checked: no pain, redness, or swelling. IV flushed thoroughly pre- and post-medication administration. IVP given by RN. --11:33 Yohana Avila R.N. DISPOSITION / DISCHARGE 12:20. Condition at departure: improved. No learning barriers present. Reviewed medication(s) side effects, precautions and dosing information. Prescription(s) given to the patient. Medication(s) course not reviewed. Patient verbalized understanding. Written instructions provided in Thai. The patient was discharged home. She left the Emergency Department ambulatory and via private vehicle. Patient driving. Medication list reviewed and validated. --12:44 Yohana Avila R.N. 12:20 10/31/16. BP: 115/73. HR: 71. RR: 18. O2 saturation: 99% on room air. Temp: deferred. Pain level now: 07/10. 11:10/31/16. BP: 127/77. HR: 79. RR: 16. O2 saturation: 99% on room air. 10:34 10/31/16. BP: 171/95. HR: 90. RR: 22. O2 saturation: 100% on room air. Temp: 97.9 F (oral). Pain level now 12/07. --12:44 Yohana Avila R.N. 12:20 10/31/16. BP: 115/73. HR: 71. RR: 18. O2 saturation: 99% on room air. Temp: deferred. Pain level now: 07/10. 11:08 10/31/16. BP: 127/77. HR: 79. RR: 16. O2 saturation: 99% on room air. 10:34 10/31/16. BP: 171/95. HR: 90. RR: 22. O2 saturation: 100% on room air. Temp: 97.9 F (oral). Pain level now 12/07. --12:44 Yohana Avila R.N. Locked/Released at 10/31/2016 12:45 by Yohana Avila R.N.
--- NOTE | 2016-11-03 09:30 | ED MAR SUMMARY ---
..... Medication Administration Record [facility] [address] [place] [address] Patient: VIGNESH KING Visit ID: [id number] 26y, F Weight: 88.4 kg Height/Length: 68 in BMI: 29.6 ALLERGIES: Latex, Penicillin Given 11:18 10/31/2016 Yohana Avila R.N. Medication Administered: TORADOL [IVP], Dose: 30 mg IVP over 1 minute(s), Site: #1 left AC. Medication Ordered: Toradol IV 30 mg (NOW).
--- NOTE | 2016-11-03 09:30 | ED DISCHARGE INSTRUCTIONS ---
Patient: VIGNESH KING General Instructions [facility] VisitID: [id number] [address] [place] [address] 26y, F Registration Date/Time: 10/31/2016 Acute headache. Palpitations (acute). INSTRUCTIONS Warnings: GENERAL WARNINGS: Return or contact your physician immediately if your condition worsens or changes unexpectedly, if not improving as expected, or if other problems arise. SPECIFICALLY, return if you develop chest, neck, jaw, shoulder, arm, or back pain, difficulty breathing, a fluttering sensation in your chest, lightheadedness, fainting, excessive fatigue, or sudden sweating. Your Current Medications: CONTINUE TAKING THE FOLLOWING MEDICATIONS: Magnesium Oral. Prescription Medications: Fioricet: take 1 orally every 6 hours as needed for pain or headache. Dispense thirty (30). No refills. Substitution is permissible. Follow-up: Return to the emergency department as needed. Follow up with your doctor in three days. Reason for referral: recheck today's concerns. Summary of care provided to patient via paper. Screening today revealed the patient's blood pressure to be in the normal range. The patient should follow up with a primary care provider for blood pressure management. Understanding of the discharge instructions verbalized by patient. ADDITIONAL INFORMATION Heart Palpitations Palpitations refers to the feeling that your heart is beating hard, fast or irregular. Some people describe it as "pounding" or "skipped beats". Palpitations may occur in persons with heart disease, but can also occur in healthy persons. Heart-Related Causes: Arrhythmia (a change from the heart's normal rhythm) Disease of the heart valves Hex-[id number] Causes: Certain medicines (such as asthma inhalers and decongestants) Some herbal supplements, energy drinks and pills, and weight loss pills Illegal stimulant drugs (such as cocaine, crank, methamphetamine, PCP) Caffeine, alcohol and tobacco Medical conditions such as thyroid disease, anemia, anxiety and panic disorder Sometimes the cause cannot be found. Home Care: Avoid excess caffeine, alcohol, tobacco and any stimulant drugs. Tell your doctor about any prescription or iqbv-fof-jztgjlo or herbal medicines you take. Follow Up with your doctor or as advised by our staff. Get Prompt Medical Attention if any of the following occur together with palpitations: Weakness, dizziness, light-headed or fainting Chest pain or shortness of breath Rapid heart rate (over 120 beats per minute, at rest) Palpitations that lasts over 20 minutes Weakness of an arm or leg or one side of the face Difficulty with speech or vision Headache [Unspecified] The cause of your headache today is not clear, but it does not appear to be the sign of any serious illness. Under stress, some people tense the muscles of their shoulder, neck and scalp without knowing it. If this condition lasts long enough, a TENSION HEADACHE can occur. A MIGRAINE HEADACHE is caused by changes in blood flow to the brain. A migraine attack may be triggered by emotional stress, hormone changes during the menstrual cycle, oral contraceptives, alcohol use, certain foods containing tyramine, eye strain, weather changes, missing meals, lack of sleep or oversleeping. Other causes of headache include a viral illness with high fever, head injury with concussion, sinus, ear or throat infection, dental pain and TMJ (jaw joint) pain. More serious but less common causes of headache include stroke, brain hemorrhage, brain tumor, meningitis and encephalitis. Home Care: If you were given pain medicine for this headache, do not drive yourself home. Arrange for a ride, instead. When you get home, try to sleep. You should feel much better when you wake up. Apply heat to the back of your neck to relieve neck muscle spasm. Migraine headaches may respond best to an ice pack on the forehead or at the base of the skull. If you are having nausea or vomiting, follow a light diet until your headache is relieved. If you have a migraine type headache, use sunglasses when in the daylight or around bright indoor lighting until symptoms improve. Bright glaring light can worsen this kind of headache. Follow Up with your doctor if the headache is not better within the next 24 hours. If you have frequent headaches you should discuss a treatment plan with your primary care doctor. By being aware of the earliest signs of headache, and starting treatment right away, you may be able to stop the pain yourself. Get Prompt Medical Attention if any of the following occur: Worsening of your head pain or no improvement within 24 hours Repeated vomiting (unable to keep liquids down) Fever of 100.4F (38C) or higher, or as directed by your healthcare provider Stiff neck Extreme drowsiness, confusion or fainting Dizziness, vertigo (dizziness with spinning sensation) Weakness of an arm or leg or one side of the face Difficulty with speech or vision Butalbital, Acetaminophen, Caffeine Oral tablet What is this medicine? ACETAMINOPHEN; BUTALBITAL; CAFFEINE (a set a TRINIDAD gypsy fen; byoo DEMETRI bi demetri; KAF een) is a pain reliever. It is used to treat tension headaches. How should I use this medicine? Take this medicine by mouth with a full glass of water. Follow the directions on the prescription label. If the medicine upsets your stomach, take the medicine with food or milk. Do not take more than you are told to take. Talk to your credit risk modeler regarding the use of this medicine in children. Special care may be needed. What side effects may I notice from receiving this medicine? Side effects that you should report to your doctor or health multi care technician as soon as possible: allergic reactions like skin rash, itching or hives, swelling of the face, lips, or tongue breathing problems confusion feeling faint or lightheaded, falls redness, blistering, peeling or loosening of the skin, including inside the mouth seizure stomach pain yellowing of the eyes or skin Side effects that usually do not require medical attention (report to your doctor or health multi care technician if they continue or are bothersome): constipation nausea, vomiting What may interact with this medicine? alcohol or medicines that contain alcohol antidepressants, especially MAOIs like isocarboxazid, phenelzine, tranylcypromine, and selegiline antihistamines benzodiazepines carbamazepine isoniazid medicines for pain like pentazocine, buprenorphine, butorphanol, nalbuphine, tramadol, and propoxyphene muscle relaxants naltrexone phenobarbital, phenytoin, and fosphenytoin phenothiazines like perphenazine, thioridazine, chlorpromazine, mesoridazine, fluphenazine, prochlorperazine, promazine, and trifluoperazine voriconazole What if I miss a dose? If you miss a dose, take it as soon as you can. If it is almost time for your next dose, take only that dose. Do not take double or extra doses. Where should I keep my medicine? Keep out of the reach of children. This medicine can be abused. Keep your medicine in a safe place to protect it from theft. Do not share this medicine with anyone. Selling or giving away this medicine is dangerous and against the law. Store at room temperature between 15 and 30 degrees C (59 and 86 degrees F). Keep container tightly closed. Protect from light. Throw away any unused medicine after the expiration date. What should I tell my health care provider before I take this medicine? They need to know if you have any of these conditions: drink more than 3 alcohol-containing drinks per day drug abuse or addiction heart or circulation problems kidney disease or problems going to the bathroom liver disease lung disease, asthma, or breathing problems porphyria an unusual or allergic reaction to acetaminophen, butalbital or other barbiturates, caffeine, other medicines, foods, dyes, or preservatives or trying to get breast-feeding What should I watch for while using this medicine? Tell your doctor or health multi care technician if your pain does not go away, if it gets worse, or if you have new or a different type of pain. You may develop tolerance to the medicine. Tolerance means that you will need a higher dose of the medicine for pain relief. Tolerance is normal and is expected if you take the medicine for a long time. Do not suddenly stop taking your medicine because you may develop a severe reaction. Your body becomes used to the medicine. This does NOT mean you are addicted. Addiction is a behavior related to getting and using a drug for a non-medical reason. If you have pain, you have a medical reason to take pain medicine. Your doctor will tell you how much medicine to take. If your doctor wants you to stop the medicine, the dose will be slowly lowered over time to avoid any side effects. You may get drowsy or dizzy when you first start taking the medicine or change doses. Do not drive, use machinery, or do anything that may be dangerous until you know how the medicine affects you. Stand or sit up slowly. Do not take other medicines that contain acetaminophen with this medicine. Always read labels carefully. If you have questions, ask your doctor or pharmacist. If you take too much acetaminophen get medical help right away. Too much acetaminophen can be very dangerous and cause liver damage. Even if you do not have symptoms, it is important to get help right away. You have been given the following additional information: Palpitations Headache, Unspecified Butalbital, Acetaminophen, Caffeine Oral tablet (Electronically signed by Jackson Bladn Dr. 11/03/2016 9:30)
--- NOTE | 2016-11-03 09:30 | ED MED RECONCILIATION SUMMARY ---
Patient: VIGNESH KING Medication Reconciliation Report [facility] VisitID: [id number] [address] [place] [address] 26y, F Registration Date/Time: 10/31/2016 Weight: 88.4 kg Height/Length: 68 in. BMI: 29.6 ALLERGIES: Latex, Penicillin The patient's Home Medications are listed below: CONTINUE TAKING THE FOLLOWING MEDICATIONS: Magnesium Oral The source(s) of the original Home Medication information: patient The following Medications were given to the patient in the Emergency Department: Toradol [IVP] IVP 30 mg, administered: 10/31/2016 11:18:00 AM The following Medications were prescribed to the patient: Fioricet: take 1 orally every 6 hours as needed for pain or headache. Dispense thirty (30). No refills. Substitution is permissible. -- Jackson Bland Dr.
--- NOTE | 2016-11-03 09:30 | ED MAR SUMMARY ---
..... Medication Administration Record [facility] [address] [place] [address] Patient: VIGNESH KING Visit ID: [id number] 26y, F Weight: 88.4 kg Height/Length: 68 in BMI: 29.6 ALLERGIES: Latex, Penicillin Given 11:18 10/31/2016 Yohana Avila R.N. Medication Administered: TORADOL [IVP], Dose: 30 mg IVP over 1 minute(s), Site: #1 left AC. Medication Ordered: Toradol IV 30 mg (NOW).
--- NOTE | 2016-11-03 09:30 | ED MED RECONCILIATION SUMMARY ---
Patient: VIGNESH KING Medication Reconciliation Report [facility] VisitID: [id number] [address] [place] [address] 26y, F Registration Date/Time: 10/31/2016 Weight: 88.4 kg Height/Length: 68 in. BMI: 29.6 ALLERGIES: Latex, Penicillin The patient's Home Medications are listed below: CONTINUE TAKING THE FOLLOWING MEDICATIONS: Magnesium Oral The source(s) of the original Home Medication information: patient The following Medications were given to the patient in the Emergency Department: Toradol [IVP] IVP 30 mg, administered: 10/31/2016 11:18:00 AM The following Medications were prescribed to the patient: Fioricet: take 1 orally every 6 hours as needed for pain or headache. Dispense thirty (30). No refills. Substitution is permissible. -- Jackson Bland Dr.
== END 2016-10-31 12:20 | disposition home or self-care (01) ==
LOC: ED SRH 10:30
DX: R00.2 Palpitations (principal); R51 Headache; Z88.0 Allergy status to penicillin
CPT/HCPCS: 90004; 90100; 92720; 92740; 93070; 93140; 95059

== ENCOUNTER 2016-11-25 00:55 | Emergency (ER) | payer OTHER ==
--- NOTE | 2016-11-25 05:18 | ED NURSING NOTES ---
Clinical Report - Nurses [facility] [address] [place] [address] 11/25/2016 0:56 Patient: VIGNESH KING TRIAGE Triage time 01:00. Chief Complaint: DYSPNEA (swelling face, arms, & feet). Alert. No acute distress. --01: Lauryn Miller R.N. 01:00 11/25/16. BP: 142/87. HR: 101. RR: 16 (regular and unlabored). O2 saturation: 100% on room air. Temp: 97.8 F (oral). Pain level now: 0/10. --01: Lauryn Miller R.N. Weight: 90.7 kg stated. Height/Length: 67 inches Per Patient. BMI: 31.3. --01: Lauryn Miller R.N. Medications Magnesium Oral. --01: Lauryn Miller R.N. Allergies Latex. Penicillins. --01: Lauryn Miller R.N. History Arrived by private vehicle. Historian: patient. Primary physician (Yunior). ( pt reports being out in the sun 2 days ago and reports localized swelling of the arms and feet then, but tonight woke up from sleep with facial swelling and feeling unable to breathe.). This started today. PAST MEDICAL HX: Immunizations: up-to-date. Last normal menstrual period was 1 week ago. Uses an intrauterine device. SOCIAL HX: Never smoker. Occasional alcohol use. No drug use. NUTRITIONAL RISK ASSESSMENT: The nutritional risk assessment revealed no deficiencies. FUNCTIONAL ASSESSMENT: Functional assessment: no impairments noted. --01: Lauryn Mliler R.N. PROBLEMS: Thomas Thyroiditis. Palpitations. Hypomagnesemia. Corneal Abrasion. --01: Lauryn Miller R.N. Renal Colic [RuleOut]. UTI - Urinary Tract Infection [RuleOut]. --01: Lauryn Miller R.N. ADDITIONAL SURGERIES: . Dental Surgery. --01:03 Lauryn Miller R.N. PHYSICAL ASSESSMENT Ambulatory to room. Patient gowned. GENERAL / NEURO / PSYCH: Alert. Oriented X 4. Appears in no acute distress. HEENT: Mucous membranes are pink. RESPIRATORY: Respirations not labored. CVS: Capillary refill less than 2 seconds. SKIN: Skin is warm and dry. --01:06 Lauryn Miller R.N. NURSING PROGRESS NOTES Head of bed elevated. Two patient identifiers checked. Call light placed in reach. Side rails up x 1. Bed placed in lowest position. Brakes of bed on. --01:06 Lauryn Miller R.N. Patient ready for evaluation- chart flagged. --01:06 Lauryn Miller R.N. 01:08 11/25/2016 Site #1 started via IV in the right forearm with an 18g angiocath, with aseptic technique and good blood return; one attempt. Blood drawn: rainbow set. Labeled in the presence of the patient and sent to the lab. Saline lock flushed with 10 mL saline (Started by Leeanna Chaparro RN). --01:08 Lauryn Miller R.N. Patient ID band checked for patient name and birthdate: patient confirmed. Clean catch urine collected; sample sent to lab. Specimen labeled in the presence of the patient. --01:24 Angélica Barnes R.N. EKG time: (0253). EKG was ordered, performed by a tech and shown to the ED physician. --02:56 Antonio Serrano, ER Upholsterer Apprentice Oxygen administered by nasal cannula at 2 liters. --02:58 Antonio Serrano, ER Upholsterer Apprentice 05:02 11/25/16. BP: 117/62. HR: 62. RR: 12. O2 saturation: 100% on room air. Pain level now: 0/10. --05:05 Zi Batres R.N. DISPOSITION / DISCHARGE 05:05 11/25/16. BP: 117/62. HR: 62. RR: 12. O2 saturation: 100% on room air. Pain level now: 0/10. --05:07 Zi Batres R.N. 05:19 11/25/2016 Site #1 removed upon discharge. Manual pressure and bandaid applied. --05:24 Ana Craft R.N. 05:24 11/25/16. No learning barriers present. Discharge instructions provided and reviewed with the patient. Reviewed referrals. Activity restrictions reviewed. School note given. Patient verbalized understanding. Written instructions provided in Belarusian. The patient was discharged home. She left the Emergency Department ambulatory and via private vehicle. Patient driving. --05:24 Ana Craft R.N. Locked/Released at 11/27/2016 5:18 by Lauryn Miller R.N.
--- NOTE | 2016-11-25 05:18 | ED ORDER SUMMARY ---
..... Patient: VIGNESH KING OrderSheet [facility] VisitID: [id number] [address] [place] [address] 26y, F Registration Date/Time: 11/25/2016 ORDER SHEET Weight: 90.7 kg (stated) Allergies: Latex, Penicillins GENERAL ORDERS: Chest 1V Urgent (02:36 11/25/2016 Ching SOLIS) (Ack 2:45 ALawrence ER Tech1) (2:46 ALawrence ER Tech1) Field Technical Support Consultant (Continuous) (02:37 11/25/2016 Ching SOLIS) (2:45 ALawrence ER Tech1) CBC w Diff Urgent (02:37 11/25/2016 Ching SOLIS) (Ack 2:45 ALawrence ER Tech1) (2:46 ALawrence ER Tech1) CMP Urgent (02:37 11/25/2016 Ching SOLIS) (Ack 2:45 ALawrence ER Tech1) (2:46 ALawrence ER Tech1) BNP Urgent (02:37 11/25/2016 Ching SOLIS) (Ack 2:45 ALawrence ER Tech1) (2:46 ALawrence ER Tech1) Oxygen (2 L/min) (NC) (02:37 11/25/2016 Ching SOLIS) (Ack 2:45 ALawrence ER Tech1) (2:58 CHagerty ER Submarine Operator) Pulse oximeter (02:37 11/25/2016 Ching SOLIS) (2:45 ALawrence ER Tech1) EKG - ER Stat (02:37 11/25/2016 Ching SOLIS) (Ack 2:45 ALawrence ER Tech1) (2:56 CHagerty ER Submarine Operator) MEDICATION ORDERS: IV FLUIDS: IV Saline Lock (02:37 11/25/2016 Ching SOLIS) (Ack 2:43 RCollier R.N.) (5:00 JQuiveshimon R.N.) ORDER SHEET NOTES: [Electronically signed by Lauryn Miller R.N. (05:18 11/27/2016)] [Electronically signed by Mik Yancey MD (14:39 11/27/2016)] [Electronically locked/signed by Lauryn Miller R.N. (05:18 11/27/2016)]
--- NOTE | 2016-11-25 05:18 | ED CLINICAL REPORT ---
Clinical Report - Physicians/Mid Levels [facility] [address] [place] [address] 11/25/2016 0:56 Patient: VIGNESH KING Arrived- By private vehicle. Historian- patient. HISTORY OF PRESENT ILLNESS Chief Complaint: FACE, ARM AND LEG SWELLING. At its maximum, severity described as moderate. When seen in the E.D., severity described as mild. Modifying factors- (Worse with sun exposure.). Not relieved by anything. This started today and is still present but is better now. It was gradual in onset. 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 She was in the sun over the last sof her face and arms.). Similar symptoms previously: None. Recent medical care: The patient was seen recently by a health care provider. ( Thomas's thyroiditis work up recently). REVIEW OF SYSTEMS No fever. She has had difficulty breathing. No PE DVT. PAST HISTORY Medications: Magnesium Oral. Allergies: Latex. Penicillins. ADDITIONAL NOTES The nursing notes have been reviewed. PHYSICAL EXAM Vital Signs: 11/25/2016 05:05 BP: 117/62. HR: 62. RR: 12. O2 saturation: 100%. Pain level now: 0/10. 11/25/2016 05:02 BP: 117/62. HR: 62. RR: 12. O2 saturation: 100%. Pain level now: 0/10. 11/25/2016 01:00 BP: 142/87. HR: 101. RR: 16. O2 saturation: 100%. Temp: 97.8 F. Pain level now: 0/10. Appearance: Alert. No acute distress. Eyes: Eyes normal inspection. ENT: Nose normal. Pharynx normal. CVS: Normal heart rate and rhythm. Respiratory: No respiratory distress. Breath sounds normal. Skin: (Noticeable redness and mild edema in sun exposed areas.). Extremities: Extremities exhibit normal ROM. LABS, X-RAYS, AND EKG EKG: No acute process. No acute ischemia. Normal P waves. Normal GIO. Normal QRS complex. Normal axis. Normal ST and T waves. Laboratory Tests: CBC w Diff: (FELIPA: 11/25/2016 01:08) ( [facility] 11/25/2016 02:42) Final results Test Result Flag Units (Reference) WHITE BLOOD COUNT 9.0 K/uL (4.5-11.5) RED BLOOD COUNT 4.38 M/uL (4.00-5.20) HEMOGLOBIN 12.0 gm/dL (12.0-16.0) HEMATOCRIT 35.8 L % (36.0-46.0) MEAN CELL VOLUME 82 fL (80-100) MEAN CORPUSCULAR HGB 28 pg (26-34) MEAN CORPUSCULAR HGB CONC 34 g/dL (31-37) RED CELL DISTRIBUTION WIDTH 13.5 % (11.6-14.8) PLATELET COUNT 278 K/uL (150-400) NEUTROPHIL % 49.2 L % (50-75) LYMPH % 42.5 H % (25-40) MONO % 6.3 % (3-14) EOSINOPHIL % 1.4 % (0-4) BASOPHIL % 0.6 % (0-2) BNP: (FELIPA: 11/25/2016 01:08) ( [facility] 11/25/2016 03:00) Final results Test Result Flag Units (Reference) B-TYPE NATRIURETIC PEPTIDE < 5.0 L pg/ml (5-100) CMP: (FELIPA: 11/25/2016 01:08) ( [facility] 11/25/2016 02:52) Final results Test Result Flag Units (Reference) GLUCOSE 89 mg/dL (70-110) BUN 23 H mg/dL (7-18) CREATININE 1.0 mg/dL (0.6-1.3) Estimated GFR >60 mL/min Estimated GFR- >60 mL/min Note: Persistent reduction over 3 months in eGFR<60 mL/min/1.73 m2 defines CKD. Patients with eGFR values>=60 mL/min/1.73 m2 may also have CKD if evidence ofpersistent proteinuria. Additional information may be foundat www.kidney.org. SODIUM 139 mmol/L (136-145) POTASSIUM 3.9 mmol/L (3.5-5.1) CHLORIDE 103 mmol/L (98-107) CARBON DIOXIDE 24 mmol/L (21-32) CALCIUM 8.7 mg/dL (8.5-10.1) TOTAL PROTEIN 7.8 g/dL (6.4-8.2) ALBUMIN 4.1 g/dL (3.3-5.0) BILIRUBIN, TOTAL 0.4 mg/dL (0.0-1.0) ALKALINE PHOSPHATASE 56 U/L (46-116) AST (SGOT) 17 U/L (15-37) ALT (SGPT) 29 U/L (12-78) . PROGRESS AND PROCEDURES Course of Care: No evidence of anaphylaxis. I wonder is the new sun sensitivity is if a part of her thyroiditis. Disposition: Discharged. Condition: stable. CLINICAL IMPRESSION CUTANEOUS RASH HISTORY OF HASHIMOTOS THYROIDITIS. INSTRUCTIONS Do not go to school today (11/25). (THERE IS NO EVIDENCE OF HEART OR VASCULAR PROBLEMS THE SWELLING MAY WELL BE RELATED TO THYROIDITIS PLUS SUN EXPOSURE COVER FROM HEAD TO TOE TO PREVENT FURTHER SUN EXPOSURE. IMMEDIATELY RECHECK IF SIGNIFICANTLY WORSE.). Follow-up: Follow up with your doctor in five days. Call for an appointment. Understanding of the discharge instructions verbalized by patient. (Electronically signed by Mik Yancey MD 11/27/2016 14:39)
--- NOTE | 2016-11-25 05:18 | ED ORDER SUMMARY ---
..... Patient: VIGNESH KING OrderSheet [facility] VisitID: [id number] [address] [place] [address] 26y, F Registration Date/Time: 11/25/2016 ORDER SHEET Weight: 90.7 kg (stated) Allergies: Latex, Penicillins GENERAL ORDERS: Chest 1V Urgent (02:36 11/25/2016 Ching SOLIS) (Ack 2:45 ALawrence ER Tech1) (2:46 ALawrence ER Tech1) Aircraft Cleaner (Continuous) (02:37 11/25/2016 Ching SOLIS) (2:45 ALawrence ER Tech1) CBC w Diff Urgent (02:37 11/25/2016 Ching SOLIS) (Ack 2:45 ALawrence ER Tech1) (2:46 ALawrence ER Tech1) CMP Urgent (02:37 11/25/2016 Ching SOLIS) (Ack 2:45 ALawrence ER Tech1) (2:46 ALawrence ER Tech1) BNP Urgent (02:37 11/25/2016 Ching SOLIS) (Ack 2:45 ALawrence ER Tech1) (2:46 ALawrence ER Tech1) Oxygen (2 L/min) (NC) (02:37 11/25/2016 Ching SOLIS) (Ack 2:45 ALawrence ER Tech1) (2:58 CHagerty ER Section Beamer) Pulse oximeter (02:37 11/25/2016 Ching SOLIS) (2:45 ALawrence ER Tech1) EKG - ER Stat (02:37 11/25/2016 Ching SOLIS) (Ack 2:45 ALawrence ER Tech1) (2:56 CHagerty ER Section Beamer) MEDICATION ORDERS: IV FLUIDS: IV Saline Lock (02:37 11/25/2016 Ching SOLIS) (Ack 2:43 RCollier R.N.) (5:00 JQuiveshimon R.N.) ORDER SHEET NOTES: [Electronically signed by Lauryn Miller R.N. (05:18 11/27/2016)] [Electronically signed by Mik Yancey MD (14:39 11/27/2016)] [Electronically locked/signed by Lauryn Miller R.N. (05:18 11/27/2016)]
--- NOTE | 2016-11-25 06:35 | DIAGNOSTIC IMAGING REPORT ---
PROCEDURE: XR CHEST 1 VIEW INDICATION: SHORTNESS OF BREATH TECHNIQUE: Single view chest. 02:47 hours COMPARISON: 10/26/2016 FINDINGS: The cardiopulmonary contour and central vasculature are stable, within normal limits. The lungs are clear without focal consolidation, pleural effusion or pneumothorax. The osseous structures are intact. IMPRESSION: 1. No evidence of acute cardiopulmonary disease.
--- NOTE | 2016-11-27 14:40 | ED DISCHARGE INSTRUCTIONS ---
Patient: VIGNESH KING General Instructions [facility] VisitID: [id number] [address] [place] [address] 26y, F Registration Date/Time: 11/25/2016 CUTANEOUS RASH HISTORY OF HASHIMOTOS THYROIDITIS. INSTRUCTIONS Do not go to school today (11/25). (THERE IS NO EVIDENCE OF HEART OR VASCULAR PROBLEMS THE SWELLING MAY WELL BE RELATED TO THYROIDITIS PLUS SUN EXPOSURE COVER FROM HEAD TO TOE TO PREVENT FURTHER SUN EXPOSURE. IMMEDIATELY RECHECK IF SIGNIFICANTLY WORSE.). Follow-up: Follow up with your doctor in five days. Call for an appointment. Understanding of the discharge instructions verbalized by patient. Do not go to school today (11/25). (Electronically signed by Mik Yancey MD 11/27/2016 14:39)
--- NOTE | 2016-11-27 14:40 | ED MAR SUMMARY ---
..... Medication Administration Record [facility] [address], [place] [id number] Patient: VIGNESH KING Visit ID: [id number] 26y, F Weight: 90.7 kg Height/Length: 67 in BMI: 31.3 ALLERGIES: Latex, Penicillins
--- NOTE | 2016-11-27 14:40 | ED DISCHARGE INSTRUCTIONS ---
Patient: VIGNESH KING General Instructions [facility] VisitID: [id number] [address] [place] [address] 26y, F Registration Date/Time: 11/25/2016 CUTANEOUS RASH HISTORY OF HASHIMOTOS THYROIDITIS. INSTRUCTIONS Do not go to school today (11/25). (THERE IS NO EVIDENCE OF HEART OR VASCULAR PROBLEMS THE SWELLING MAY WELL BE RELATED TO THYROIDITIS PLUS SUN EXPOSURE COVER FROM HEAD TO TOE TO PREVENT FURTHER SUN EXPOSURE. IMMEDIATELY RECHECK IF SIGNIFICANTLY WORSE.). Follow-up: Follow up with your doctor in five days. Call for an appointment. Understanding of the discharge instructions verbalized by patient. Do not go to school today (11/25). (Electronically signed by Mik Yancey MD 11/27/2016 14:39)
--- NOTE | 2016-11-27 14:40 | ED MAR SUMMARY ---
..... Medication Administration Record [facility] [address] [place], [place] [id number] Patient: VIGNESH KING Visit ID: [id number] 26y, F Weight: 90.7 kg Height/Length: 67 in BMI: 31.3 ALLERGIES: Latex, Penicillins
--- NOTE | 2016-11-27 14:40 | ED MED RECONCILIATION SUMMARY ---
Patient: VIGNESH KING Medication Reconciliation Report [facility] VisitID: [id number] [address] [place] [place] [address] 26y, F Registration Date/Time: 11/25/2016 Weight: 90.7 kg Height/Length: 67 in. BMI: 31.3 ALLERGIES: Latex, Penicillins The patient's Home Medications are listed below: THE FOLLOWING MEDICATIONS NEED TO BE RECONCILED: Magnesium Oral The source(s) of the original Home Medication information: Not obtained. The following Medications were given to the patient in the Emergency Department: None. The following Medications were prescribed to the patient: None.
--- NOTE | 2016-11-27 14:40 | ED MED RECONCILIATION SUMMARY ---
Patient: VIGNESH KING Medication Reconciliation Report [facility] VisitID: [id number] [address] [place] [place] [address] 26y, F Registration Date/Time: 11/25/2016 Weight: 90.7 kg Height/Length: 67 in. BMI: 31.3 ALLERGIES: Latex, Penicillins The patient's Home Medications are listed below: THE FOLLOWING MEDICATIONS NEED TO BE RECONCILED: Magnesium Oral The source(s) of the original Home Medication information: Not obtained. The following Medications were given to the patient in the Emergency Department: None. The following Medications were prescribed to the patient: None.
== END 2016-11-25 05:24 | disposition home or self-care (01) ==
LOC: ED SRH 00:55
DX: R21 Rash and other nonspecific skin eruption (principal); E06.3 Autoimmune thyroiditis; Z88.0 Allergy status to penicillin; Z91.040 Latex allergy status; Z79.899 Other long term (current) drug therapy
CPT/HCPCS: 90100; 91320; 95059